=== PATIENT | female | born 1955 | race Two or more races ===

== ENCOUNTER → 2019-05-08 16:09 | Outpatient (CLI) | payer OTHER, SELFPAY ==
--- NOTE | ~2019-05-08 | MR_ITS ---
EXAMINATION: MR lumbar spine wo con DATE: 05/08/2019 17:18 INDICATION: Chronic low back pain. TECHNIQUE: Magnetic resonance imaging (MRI) of the lumbar spine was performed without intravenous con trast. Sequences included sagittal T2-weighted FSE, sagittal T2-weighted FS FSE, sagittal T1-weighted FSE, and axial T2-weighted FSE. COMPARISON: Lumbar spine MRI 03/19/2018 FINDINGS: There is 4 degrees levocurvature of lumbar spine. There is 7 mm anterolisthesis of L4 on L5 . Vertebral body heights are normal. There is moderately decreased disc height at L4-L5 and mildly de creased disc height at L5-S1. The distal spinal cord signal intensity is normal. The conus medullaris is at L1. The following disc levels are specifically discussed: L1-L2: The disc does not extend beyond the endplate margin. There is no facet joint osteoarthritis. T here is no neural foraminal stenosis. There is no central canal stenosis. L2-L3: The disc does not extend beyond the endplate margin. There is mild bilateral facet joint osteo arthritis. There is no neural foraminal stenosis. There is no central canal stenosis. L3-L4: The disc is mildly bulging. There is severe bilateral facet joint osteoarthritis. There is mil d bilateral neural foraminal stenosis. There is mild central canal stenosis. L4-L5: The disc is bulging and has an annular fissure. There is severe bilateral facet joint osteoart hritis. There is moderate bilateral neural foraminal stenosis. There is moderate central canal stenos is. L5-S1: There is a central extrusion. There is severe right and mild left facet joint osteoarthritis. There is mild bilateral neural foraminal stenosis. There is mild central canal stenosis. IMPRESSION: 1. Moderate lumbar spondylosis, worsened from 03/19/2018. Reviewed, dictated and finalized at location A. 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
== END ==
PROVIDERS: Visit Provider Emergency Medicine
DX: M47.896 Other spondylosis, lumbar region (principal)
CPT/HCPCS: 72148

== ENCOUNTER → 2019-07-10 16:10 | Outpatient (CLI) | payer OTHER, SELFPAY ==
--- NOTE | ~2019-07-10 | MM_ITS ---
EXAMINATION: MM screening [facility] BI w mika HISTORY: Screening mammogram TECHNIQUE: Craniocaudal and mediolateral oblique 3-D tomosynthesis images were obtained and synthetic 2-D images were generated. CAD analysis was submitted and interpreted. COMPARISON: 12/18/2017, 11/16/2016, 03/16/2015 BREAST PARENCHYMAL COMPOSITION: The breasts are heterogeneously dense, which may obscure small masses . FINDINGS: RIGHT BREAST: An asymmetry is present in the middle third of the outer breast 5 cm from the nipple on the craniocaudal view. LEFT BREAST: There is no evidence of suspicious mass, calcification, or architectural distortion to s uggest malignancy. There has been no significant interval change. IMPRESSION: 1. Right breast asymmetry on the craniocaudal view. 2. Additional mammographic views and possible breast ultrasound are recommended. BI-RADS Category 0: Incomplete: Needs additional imaging evaluation. Reviewed, dictated and finalized at location A. 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 Right breast asymmetry on the craniocaudal view. 2. Additional mammographic views and possible breast ultrasound are recommended . BI-RADS Category 0: Incomplete: Needs additional imaging evaluation.
== END ==
PROVIDERS: PCP Emergency Medicine; Visit Provider Obstetrics & Gynecology
DX: Z12.31 Encounter for screening mammogram for malignant neoplasm of breast (principal); R92.8 Other abnormal and inconclusive findings on diagnostic imaging of breast
CPT/HCPCS: 77063; 77067

== ENCOUNTER → 2019-07-15 08:23 | Outpatient (CLI) | payer OTHER, SELFPAY ==
--- NOTE | ~2019-07-15 | CT_ITS ---
EXAMINATION: CT lumbar spine wo con EXAM DATE: 07/15/2019 08:55 INDICATION: Low back pain with radiculopathy. Lumbar spondylosis. TECHNIQUE: Multi-sequential, multiplanar MR images of the lumbar spine were obtained without contrast . Sagittal T1, T2, T2 fat saturation images. Axial T2 weighted images. There is no prior study for comparison. FINDINGS: There is 7 mm anterolisthesis L4 on L5 with moderate loss of this disc height. There is 2 m m retrolisthesis L5 on S1. No spondylolysis. Vertebral body heights are maintained. Sacrum, sacroilia c joints are unremarkable. Paraspinal soft tissue is unremarkable. Mild sigmoid diverticulosis. Level by level evaluation: T12-L1: There is a mild diffuse disc bulge. Facet arthropathy: Minimal. Neural foraminal stenosis: No stenosis. Central canal stenosis: No stenosis. L1-L2: There is a mild diffuse disc bulge. Facet arthropathy: Minimal. Neural foraminal stenosis: No stenosis. Central canal stenosis: No stenosis. L2-L3: There is a mild diffuse disc bulge. Facet arthropathy: Mild. Neural foraminal stenosis: No stenosis. Central canal stenosis: Mild. L3-L4: There is a mild to moderate diffuse disc bulge. Facet arthropathy: Mild to moderate. Neural foraminal stenosis: Mild bilateral. Central canal stenosis: Mild. L4-L5: There is a moderate diffuse disc bulge. Facet arthropathy: Moderate to severe. Neural foraminal stenosis: Moderate bilateral, right greater than left. Central canal stenosis: Moderate to severe. L5-S1: There is a mild diffuse disc bulge. Superimposed central protrusion. Facet arthropathy: Moderate. Neural foraminal stenosis: Mild bilateral. Central canal stenosis: Mild to moderate. IMPRESSION: 1. L4-5 7 mm anterolisthesis with moderate to severe central canal stenosis. 2. Otherwise mild to moderate lumbar spondylosis as above. Reviewed, dictated and finalized at location B. 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
== END ==
DX: M47.896 Other spondylosis, lumbar region (principal)
CPT/HCPCS: 72131

== ENCOUNTER → 2019-07-25 07:58 | Outpatient (CLI) | payer OTHER, SELFPAY ==
--- NOTE | ~2019-07-25 | MM_ITS ---
EXAMINATION: MM diagnostic mammo unilat RT HISTORY: Right breast asymmetry on screening mammogram TECHNIQUE: Additional 3-D tomosynthesis images of the right breast were performed and synthetic 2-D i mages were generated. CAD analysis was submitted and interpreted. COMPARISON: 07/10/2019, 12/18/2017, 11/16/2016, 03/16/2015 FINDINGS: No persistent asymmetry is identified with additional views of the right breast. There is a return to baseline fibroglandular appearance. There has been no suspicious interval change. IMPRESSION: 1. No mammographic evidence of malignancy. 2. Recommend routine screening mammography in one year. BI-RADS Category 1: Negative Reviewed, dictated and finalized at location A. CTOR ON AIR
== END ==
PROVIDERS: Visit Provider Obstetrics & Gynecology
DX: R92.8 Other abnormal and inconclusive findings on diagnostic imaging of breast (principal)
CPT/HCPCS: 77065

== ENCOUNTER → 2021-03-23 13:18 | Outpatient (CLI) | payer OTHER, SELFPAY ==
--- NOTE | ~2021-03-23 | MM_ITS ---
EXAMINATION: MM screening [facility] BI w mika HISTORY: Screening mammogram TECHNIQUE: Craniocaudal and mediolateral oblique 3-D tomosynthesis images were obtained and synthetic 2-D images were generated. CAD analysis was submitted and interpreted. COMPARISON: 07/25/2019 diagnostic right mammogram 07/10/2019, 12/18/2017 bilateral digital screening mammogram examinations BREAST PARENCHYMAL COMPOSITION: The breasts are heterogeneously dense, which may obscure small masses . FINDINGS: There is no evidence of suspicious mass, calcification, or architectural distortion to sugg est malignancy in either breast. There has been no suspicious interval change. IMPRESSION: 1. No mammographic evidence of malignancy. 2. Recommend routine screening mammography in one year. BI-RADS Category 1: Negative Reviewed, dictated and finalized at location A.
== END ==
PROVIDERS: PCP Internal Medicine; Visit Provider Obstetrics & Gynecology
DX: Z12.31 Encounter for screening mammogram for malignant neoplasm of breast (principal)
CPT/HCPCS: 77063; 77067

== ENCOUNTER → 2021-03-29 13:40 | Outpatient (CLI) | payer OTHER, SELFPAY ==
--- NOTE | ~2021-03-29 | US_ITS ---
EXAMINATION: US retroperitoneal comp EXAM DATE: 03/29/2021 14:05 INDICATION: asymptomatic microscopic hematuria. TECHNIQUE: Multiple grayscale and Doppler images of the kidneys were obtained (by a technologist who performed the scan) and subsequently reviewed. There is no prior study for comparison. FINDINGS: Right kidney: There is normal contour and echogenicity. It measures 8.6 x 4.2 x 4.6 centimeters. Th ere are no focal renal lesions identified. There is no hydronephrosis. Left kidney: There is normal contour and echogenicity. It measures 9.1 x 4.1 x 4.7 centimeters. The re are no focal renal lesions identified. There is no hydronephrosis. Bladder unremarkable. IMPRESSION: 1. Sonographically unremarkable kidneys. Reviewed, dictated and finalized at location B.
== END ==
PROVIDERS: PCP Internal Medicine; Visit Provider Internal Medicine
DX: N28.9 Disorder of kidney and ureter, unspecified (principal); R31.21 Asymptomatic microscopic hematuria
CPT/HCPCS: 76770

== ENCOUNTER 2021-05-08 22:04 | Emergency (ER) | payer MEDICARE, OTHER, SELFPAY ==
--- NOTE | 2021-05-08 22:07 | ECG_ITS ---
Measurements Intervals [place] Rate: 71 P: 53 WI: 167 QRS: -17 QRSD: 88 T: 7 QT: 376 QTc: 409 Interpretive Statements SINUS RHYTHM INCOMPLETE RIGHT BUNDLE BRANCH BLOCK LOW QRS VOLTAGE IN PRECORDIAL LEADS BORDERLINE ST-T WAVE ABNORMALITY- ANTEROLATERAL LEADS BORDERLINE ECG Electronically Signed On 05-09-2021 7:04:05 AIR TRAFFIC CONTROL OPERATOR by Anirudh Moffett D.O.
[2021-05-08 22:09] VITALS: BP 146/59; PULSE 88; RESP 16; TEMP 36.1; O2SAT 100
--- NOTE | 2021-05-08 23:19 | PC.NURSE ---
PT STATES I CAN'T WAIT HERE ANY LONGER. I WANT TO GO HOME TO MY BED . ADVISED TO SPEAK WITH HER PHYSICIAN MONDAY MORNING REGARDING HER C/O. PT AMBULATORY FROM THE ED WITH A STEADY GAIT. NO TREMORS/SHAKING NOTED.
== END 2021-05-08 23:32 | disposition left against medical advice (07) ==
PROVIDERS: Emergency Provider Emergency Medicine; PCP Internal Medicine
DX: R42 Dizziness and giddiness (principal)
CPT/HCPCS: 93005; 99199

== ENCOUNTER 2021-08-04 02:54 | Emergency (ER) | payer MEDICARE, OTHER, SELFPAY ==
[2021-08-04 03:07] VITALS: BP 148/87; PULSE 60; RESP 16; TEMP 36.8; O2SAT 99
[2021-08-04 04:03] VITALS: BP 126/78; PULSE 53; RESP 16; O2SAT 100
[2021-08-04] MEDS: ACETAMINOPHEN 500 MG TABLET 1000 MG PO (05:22)
[2021-08-04] MEDS: diphenhydrAMINE HCl CAP 25 MG CAPSULE PO (05:22)
--- NOTE | 2021-08-04 05:40 | ED.RECABL ---
HPI - Recheck/Abnormal Lab/Rx General Chief Complaint: Recheck/Abnormal Lab/Rx Stated Complaint: High Blood Pressures Time Seen by Provider: 08/04/21 03:56 Source: patient History of Present Illness HPI narrative: Patient presents with multiple complaints her primary complaint is her headache at this time. Such a history of migraines at home migraine medications however did not alleviate her symptoms so she came to the ER for evaluation. Patient is also concerned about her blood pressure notes spikes up periodically up to the 190s concerned that she might have a stroke and was not sure what to do about it. She denies any focal numbness or weakness denies any changes in vision she denies any chest pain, shortness of breath, abdominal pain, nausea, vomiting. Related Data Home Medications Medication Instructions Recorded Confirmed atenolol 100 mg tablet 100 mg PO DAILY 04/24/19 multivitamin 1 tablet PO DAILY 04/24/19 sulindac 150 mg tablet 150 mg PO BID 04/24/19 Allergies Allergy/AdvReac Type Severity Reaction Status Date / Time Penicillins Allergy Mild Unknown Verified 04/24/19 10:03 yellow dye Allergy Mild Rash Verified 04/24/19 10:03 Review of Systems Review of Systems: CONSTITUTIONAL: Denies fever, chills, or sweats. EYES: Denies visual changes, redness, or discharge. ENT: Denies rhinorrhea, congestion, sore throat, or otalgia. CARDIOVASCULAR: Denies chest pain, palpitations, or edema. RESPIRATORY: Denies cough or dyspnea. GASTROINTESTINAL: Denies abdominal pain, nausea, vomiting, or diarrhea. GENITOURINARY: Denies dysuria or hematuria. SKIN: Denies rash or itching. MUSCULOSKELETAL: Denies back pain, joint pain, or myalgia. NEUROLOGIC: Denies numbness, dizziness, or weakness. PSYCHIATRIC: Denies anxiety or depression. All systems reviewed & are unremarkable except as noted in HPI and below PMFSH Past Medical History Medical History (Updated 08/04/21 @ 05:57 by Lucien Salazar MD) HSV (herpes simplex virus) infection Hypertension Surgical History Surgical History H/O foot surgery History of endometrial ablation Family History Family History Mother Hypertension Patient's mother is Other Family history of arthritis Social History Social History Smoking status: Never smoker Second hand tobacco smoke exposure: No Alcohol intake: never Exam Narrative: GENERAL: Well-appearing, well-nourished, and in no acute distress. HEAD: Normocephalic, atraumatic. EYES: PERRLA and EOMI. ENT: Nares clear, no rhinorrhea or epistaxis. Mucous membranes moist. NECK: Supple. No masses. No JVD CHEST: Clear to auscultation. No respiratory distress. No wheezes rales or rhonchi HEART: Regular rate and rhythm. No murmur heard. Normal peripheral pulses. ABDOMEN: Soft, nontender, nondistended, normal active bowel sounds. EXTREMITIES: Normal range of motion. No edema. SKIN: Warm, dry, no rash. NEURO: Cranial nerves II through XII are intact, patient is 5 out of 5 strength in all extremities, sensation intact to light touch in all extremities alert and oriented x3. PSYCH: Normal mood and affect. Course Reevaluation(s) Reevaluation #1: Patient continues to have a headache blood pressure has improved without intervention. Patient initially declined IV therapies oral therapies were ordered patient did not notice improvement in her symptoms and declined further oral therapies would like to continue her treatment at home Date: 08/04/21 Time: 05:56 Vital Signs Vital signs: Vital Signs Temperature 36.8 C 08/04/21 03:07 Pulse Rate 60 08/04/21 03:07 Respiratory Rate 16 08/04/21 03:07 Blood Pressure 148/87 H 08/04/21 03:07 Pulse Oximetry 99 08/04/21 03:07 Temperature 36.8 C 08/04/21 06:36 Pulse Rate 69
[2021-08-04] MEDS: PROCHLORPERAZINE MALEATE 5 MG TABLET 10 MG PO (06:17)
[2021-08-04 06:27] VITALS: BP 122/70; PULSE 69; RESP 18; TEMP 36.8; O2SAT 98
[2021-08-04 06:29] VITALS: BP 122/70; PULSE 69; RESP 18; TEMP 36.8; O2SAT 98
[2021-08-04 06:36] VITALS: BP 122/70; PULSE 69; RESP 18; TEMP 36.8
== END 2021-08-04 06:41 | disposition home or self-care (01) ==
PROVIDERS: Emergency Provider Emergency Medicine; PCP Internal Medicine
DX: R51.9 Headache, unspecified (principal); I10 Essential (primary) hypertension
CPT/HCPCS: 99283; A9270

== ENCOUNTER → 2021-10-16 09:13 | Outpatient (CLI) | payer MEDICARE, OTHER, SELFPAY ==
--- NOTE | ~2021-10-16 | US_ITS ---
EXAMINATION: US right upper quadrant DATE: 10/16/2021 09:29 INDICATION: Functional diarrhea. TECHNIQUE: Multiple grayscale and Doppler ultrasound images of the right upper quadrant were obtained . COMPARISON: CT abdomen and pelvis 01/05/2019. FINDINGS: Visualized portions of the pancreas are normal. The liver is normal with normal echogenicit y and echotexture. No surface nodularity. Normal hepatopetal flow in the main portal vein. The gallbl adder is normal with no abnormal wall thickening, pericholecystic fluid or stones. The normal common bile duct measures 0.3 cm. There was no sonographic Pereira sign. The visualized portions of the aorta and inferior vena cava are normal. The right kidney measures 7.5 cm. IMPRESSION: 1. Normal right upper quadrant sonogram findings. Reviewed, dictated and finalized at location K.
== END ==
PROVIDERS: PCP Internal Medicine; Visit Provider Internal Medicine
DX: K59.1 Functional diarrhea (principal)
CPT/HCPCS: 76705

== ENCOUNTER → 2021-12-16 14:44 | Outpatient (CLI) | payer MEDICARE, OTHER, SELFPAY ==
--- NOTE | ~2021-12-16 | US_ITS ---
US thyroid INDICATION: Thyroid nodules TECHNIQUE: Real-time sonographic images of the thyroid gland were obtained. COMPARISON: Ultrasound dated 12/02/2027 FINDINGS: The right thyroid lobe measures 3.8 x 1.1 x 1.1 cm. The left thyroid lobe measures 4.5 x 1 .2 x 1.4 cm. There is normal echotexture and echogenicity throughout the thyroid gland. In the left l obe there is a 3 mm cyst. Also in the left lobe there is a 6 mm cyst with internal septation. No susp icious solid masses. Normal vascular flow is present. IMPRESSION: 1. Stable benign-appearing cysts of the left thyroid lobe. No suspicious masses which meet sonograph ic criteria for biopsy. Reviewed, dictated and finalized at location A. IMPRESSION: 1. Stable benign-appearing cysts of the left thyroid lobe. No suspicious dee s which meet sonographic criteria for biopsy.
== END ==
PROVIDERS: PCP Internal Medicine; Visit Provider Internal Medicine
DX: E04.1 Nontoxic single thyroid nodule (principal)
CPT/HCPCS: 76536

== ENCOUNTER → 2022-09-12 12:01 | Outpatient (CLI) | payer MEDICARE, OTHER, SELFPAY ==
--- NOTE | ~2022-09-12 | MM_ITS ---
EXAMINATION: MM screening [facility] BI w mika HISTORY: Screening mammogram TECHNIQUE: Craniocaudal and mediolateral oblique 3-D tomosynthesis images were obtained and synthetic 2-D images were generated. CAD analysis was submitted and interpreted. COMPARISON: 03/23/2021 07/25/2019 diagnostic right mammogram 07/10/2019, 12/18/2017 bilateral screening mammogram examinations BREAST PARENCHYMAL COMPOSITION: The breasts are heterogeneously dense, which may obscure small masses . FINDINGS: There is no evidence of suspicious mass, calcification, or architectural distortion to sugg est malignancy in either breast. There has been no suspicious interval change. IMPRESSION: 1. No mammographic evidence of malignancy. 2. Recommend routine screening mammography in one year. BI-RADS Category 1: Negative Reviewed, dictated and finalized at location A.
--- NOTE | ~2022-09-12 | DEXA_ITS ---
Bone Density Report Name: WILLIE SALOMON Age: 67 Sex: Female Ethnicity: White Date of : 1955 Indication: osteopenia; height loss; postmenopausal Referring Provider: LIVIER CONTEH Study: Bone densitometry was performed. Exam Date: September 12, 2022 Accession number: [id number] Bone Density: Region BMD T-score Z-score Classification AP Spine (L1-L4) 0.989 -0.5 1.3 Normal Femoral Neck (Left) 0.684 -1.5 0.1 Osteopenia Total Hip (Left) 0.791 -1.2 0.1 Osteopenia Femoral Neck (Right) 0.746 -0.9 0.6 Normal Total Hip (Right) 0.827 -0.9 0.3 Normal Total Hip Mean 0.809 -1.1 0.2 Osteopenia World Health Organization criteria for BMD impression classify patients as: Normal (T-score at or above -1.0), Osteopenia (T-score between -1.0 and -2.5), or Osteoporosis (T-score at or below -2.5). 10-year Fracture Risk(1): Major Osteoporotic Fracture 8.8% Hip Fracture 1.0% Reported Risk Factors: [place] (), Neck BMD=0.684, BMI=23.1 (1) FRAX(R) Version 3.08. Fracture probability calculated for an untreated patient. Fracture probability may be lower if the patient has received treatment. Previous Exams: Region Exam Age BMD T-score BMD Change BMD Change Date g/cm2 vs Baseline vs Previous AP Spine(L1-L4) 09/12/2022 67 0.989 -0.5 -0.115* -0.004 05/16/2019 63 0.992 -0.5 -0.111* -0.111* 09/30/2011 56 1.103 0.5 Total Hip(Left) 09/12/2022 67 0.791 -1.2 -0.074* -0.018 05/16/2019 63 0.809 -1.1 -0.056* -0.056* 09/30/2011 56 0.865 -0.6 Total Hip(Right) 09/12/2022 67 0.827 -0.9 -0.070* -0.023 05/16/2019 63 0.850 -0.8 -0.046* -0.046* 09/30/2011 56 0.896 -0.4 *Denotes significance at 95% confidence level, LSC for AP Spine = 0.022 g/cm2, LSC for Total Hip = 0.027 g/cm2 Clinical Information Provided by Patient: Has used the following medications: Vitamin D Patient maximum height was 62 Menopause Age: 47 No regular weight bearing exercise Does not regularly consume dairy products Drinks caffeinated beverages Onset of menses at age 13 Number of children 2 Impression: The patient has low bone mass, based on the Left Femoral Neck T-score. The patient has an estimated ten-year risk of hip fracture of 1% and an estimated ten-year risk of major fracture of 8.8%, based on the WHO FRAX algorithm. No significant bone loss was o
== END ==
PROVIDERS: PCP Internal Medicine; Visit Provider Obstetrics & Gynecology
DX: Z12.31 Encounter for screening mammogram for malignant neoplasm of breast (principal); Z78.0 Asymptomatic menopausal state; M85.852 Other specified disorders of bone density and structure, left thigh; M85.851 Other specified disorders of bone density and structure, right thigh
CPT/HCPCS: 77063; 77067; 77080

== ENCOUNTER 2023-04-12 11:15 | Outpatient (RCR) | payer MEDICARE, OTHER, SELFPAY ==
--- NOTE | 2023-03-01 15:37 | OPREHPOC ---
Outpatient Therapy Plan of Care This is a Multidisciplinary Plan of Care that may contain components documented by all disciplines (PT, OT, and ST.) PT Problem 1 PT Problem #1 Knowledge Deficit PT Goal 1 Goal 1* indep with HEP 2* use correct body mechanics and posture with lifting and mobility PT Problem 2 PT Problem #2 Pain PT Goal 1 Goal 1* pt report pain rating of 2/10 at worst 2* Oswestry self assessment functional score of 34 % limitation in activity 3* pt report standing/walking tolerance of 2 hours before have to sit/rest PT Problem 3 PT Problem #3 Impaired Strength PT Goal 1 Goal 1* pt transfer sit/stand without use of UE's 2* pt able to get on/off floor without laboring 3* pt perform 20 reps of mat strengthening exercises 4* pt perform 15 reps of sitting ball exercises with good trunk stability 5* pt perform bilateral UE 15# box lift floor/ waist height, 3x
--- NOTE | 2023-03-01 15:37 | PTOPEVAL1 ---
Assessment and note entered by Jessica Marroquin, PT Evaluation Information Assessment Status Evaluation Diagnosis s/p lumbar laminectomy with fusion, sacroilitis, piriformis syndrome Onset 01-03-23 Subjective Information since surgery, resting, using back brace; after surgery, went to in pt rehab before going home; have 20# lifting restrictions; since surgery, improved- no longer have leg numbness; was on statin med which made legs more weak--taken off that med. 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 with taking care of her home, dogs, who is disabled; ACTIVITY: limited- cannot squat or do home tasks; Reported Pain Level Pain Score Self Report Additional Pain Score Comments pain range 3-4/10; over low back, no radicular pain increase pain: supine to sit and sit to stand; trying to stand upright, have to use arms to stand up decrease pain- taking tylenol;ice lie down; Oswestry self assessment functional score of 44% limitation in activity level; reports standing/walking tolerance 1 hour; take muscle relaxer for sleeping, can sleep through the night; Assessment PT Clinical Summary Norma has the diagnosis of s/p lumbar laminectomy and fusion 8 weeks ago. She is using her back brace when out of home and has lifting restriction of 20#. 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 And has not returned to work since her surgery. At home, has not been doing any exercises. Self assessment Oswestry limitation of 44%. Pain is increased with positional changes of supine/sit/ stand. With the evaluation: she has good flexibility of her LE's; weakness over trunk and hips, 2 minute walking distance of 470' with good gait pattern. The scars are well healed with tightness over lumbar area with palpation. Increase time and labored with supine>sit>
--- NOTE | 2023-04-03 13:36 | OPREHPOC ---
Outpatient Therapy Plan of Care This is a Multidisciplinary Plan of Care that may contain components documented by all disciplines (PT, OT, and ST.) PT Problem 1 PT Problem #1 Knowledge Deficit PT Goal 1 Goal 1* indep with HEP 2* use correct body mechanics and posture with lifting and mobility Progress Met Comment 04-03-23 progress met goals PT Problem 2 PT Problem #2 Pain PT Goal 1 Goal 1* pt report pain rating of 2/10 at worst 2* Oswestry self assessment functional score of 34 % limitation in activity 3* pt report standing/walking tolerance of 2 hours before have to sit/rest Progress Partially Met Comment 04-03-23 progress met goals 2,3 NEW GOALS: 1* pain rating 3/10 at worst 2* pt report working 6 hours PT Problem 3 PT Problem #3 Impaired Strength PT Goal 1 Goal 1* pt transfer sit/stand without use of UE's 2* pt able to get on/off floor without laboring 3* pt perform 20 reps of mat strengthening exercises 4* pt perform 15 reps of sitting ball exercises with good trunk stability 5* pt perform bilateral UE 15# box lift floor/ waist height, 3x Progress Partially Met Comment 04-03-23 progress met goals 1,2,3,4 NEW GOALS: 1* perform bilateral UE lift 15# box floor/waist 2* bilateral leg press 90# x 15 reps
--- NOTE | 2023-04-03 13:36 | PTOPPROG ---
Assessment and note entered by Jessica Marroquin, PT Evaluation Information Assessment Status Progress Diagnosis s/p lumbar laminectomy with fusion, sacroilitis, piriformis syndrome Onset 01-03-23 Subjective Information is better, working 4-5 hours at time, is doing all of the normal things at home now; can be up and moving for about 3 hours then sit down; can sleep through the night and turn over in bed now without hurting; PAIN: range of 1-4/10 in the past week; dull pain across low back increase pain with pulling weeds in flower garden, working 5 hours decrease pain: lie down, take muscle relaxer for sleeping, tylenol Assessment PT Clinical Summary Norma has received 4 PT sessions. Compared to the initial evaluation: pain rating from 3-4/10 to 1-4/10, without radicular pain; reported standing/activity, sleeping and work tolerance have improved; Self assessment Oswestry from 44 to 26% limitation in activity level; increased strength of trunk and hips; with bilateral UE box lift from floor/waist 5# then pain increased; education for home exercises and back posture/positioning. Plan of Care Interventions Electrical Stimulation,Hot Pack/Cold Pack,Manual Therapy,Neuro Re-education,Patient Education,Therapeutic Activities,Therapeutic Exercise,Ultrasound,Other Other Interventions IAS PT Services Indicated Yes Treatment Frequency and 1x/wk for 4 weeks Duration These treatments will address the objective and functional deficits as defined above. The patient will be advanced safely and appropriately in order for the patient to progress towards his/her prior level of function. Additional exercises will be introduced and as well as a comprehensive home exercise program upon discharge, if needed, ?to ensure carryover of functional gains achieved in the clinic. This treatment plan has been reviewed and agreement upon by the patient.
--- NOTE | 2023-04-12 12:01 | PTOPDC ---
Assessment and note entered by Jessica Marroquin, PT Evaluation Information Assessment Status Discharge Diagnosis s/p lumbar laminectomy with fusion, sacroilitis, piriformis syndrome Onset 01-03-23 Subjective Information is doing better, working 7-8 hours at work, 5-6 days/week, doing all home and yard things, walking her dog; feels ready to be done with therapy. Is doing all the exercises; Reported Pain Level Pain Score Self Report Pain Score Self Report Additional Pain Score Comments pain range of 1-3/10, stiff and sore in low back and sometimes goes up into thoracic area Assessment PT Clinical Summary Norma has received 5 PT sessions. She has improved with decreased pain rating, increase activity tolerance with home and work tasks, increase strength of trunk and legs and education completed for HEP and body mechanics. The goals were achieved, except lifting with both arms 15# floor to waist height. Discharge PT services. Plan of Care PT Services Indicated No
== END 2023-04-12 14:53 | disposition home or self-care (01) ==
LOC: ANHPT 11:15
PROVIDERS: PCP Internal Medicine
DX: M46.1 Sacroiliitis, not elsewhere classified (principal); G57.01 Lesion of sciatic nerve, right lower limb; Z98.1 Arthrodesis status; Z98.890 Other specified postprocedural states
CPT/HCPCS: 97110; 97140; 97161; 97530

== ENCOUNTER 2023-06-09 21:37 | Emergency (ER) | payer MEDICARE, OTHER, SELFPAY ==
[2023-06-09 21:38] VITALS: BP 156/85; PULSE 65; RESP 18; TEMP 36.8; O2SAT 99
== END 2023-06-09 23:33 | disposition left against medical advice (07) ==
LOC: ANHED 22:48
PROVIDERS: PCP Internal Medicine
DX: I10 Essential (primary) hypertension (principal)
CPT/HCPCS: 99199

== ENCOUNTER 2023-07-20 09:54 | Emergency (ER) | payer MEDICARE, OTHER, SELFPAY ==
[2023-07-20 10:02] VITALS: BP 128/75; PULSE 72; RESP 20; TEMP 36.4; O2SAT 100
--- NOTE | 2023-07-20 12:33 | ED.WOUNDLAC ---
HPI - Wound/Laceration General Chief Complaint: Wound/Laceration Stated Complaint: Laceration Time Seen by Provider: 07/20/23 12:29 Source: patient Mode of arrival: ambulatory Limitations: no limitations History of Present Illness HPI narrative: Norma is a 68-year-old male patient presenting to the clinic today with complaints of a skin avulsion/laceration to the right thumb. She reports she was cutting up some cabbage this morning using a mandolin and cut the lateral aspect of the right thumb involving the nail. Tetanus is up-to-date per patient-received tetanus 2 years ago. Related Data Home Medications Medication Instructions Recorded Confirmed cetirizine 10 mg capsule (Zyrtec) 10 mg PO DAILY PRN Headache 06/30/22 01/06/23 cyclobenzaprine 10 mg tablet 10 mg PO TID PRN Muscle Spasms 06/30/22 01/06/23 pravastatin 10 mg tablet 40 mg PO HS 06/30/22 01/06/23 zolmitriptan 2.5 mg tablet (Zomig) 5 mg PO ONCE PRN MATHEW 06/30/22 01/06/23 carvedilol 3.125 mg tablet 3.125 mg PO BID 01/06/23 01/06/23 cyanocobalamin (vitamin B-12) 2,000 mcg PO DAILY 01/06/23 01/06/23 1,000 mcg tablet famotidine 20 mg tablet 20 mg PO BID 01/06/23 01/06/23 fluoxetine 10 mg capsule 10 mg PO DAILY 01/06/23 01/06/23 polyethylene glycol 3350 17 17 g PO BID PRN Constipation 01/06/23 01/06/23 gram/dose oral powder (Miralax) senna-docusate sodium tablet 1 tablet PO BID PRN Constipation 01/06/23 01/06/23 triamcinolone acetonide 0.1 % 1 applic TID 01/06/23 01/06/23 dental paste triamcinolone acetonide 0.1 % 1 applic topical BID 01/06/23 01/06/23 topical cream Allergies Allergy/AdvReac Type Severity Reaction Status Date / Time Penicillins Allergy Mild Unknown Verified 01/06/23 12:52 yellow dye Allergy Mild Rash Verified 01/06/23 12:52 Review of Systems Review of Systems: Pertinent positives per HPI. Patient denies any fever, chills, rash, headache, visual changes, dizziness, cough, runny nose, sore throat, shortness of breath, chest pain, palpitations, nausea, vomiting, diarrhea, constipation, abdominal pain, or any urinary issues. [facility] Past Medical History Medical History Arthritis HSV (herpes simplex virus) infection Hypertension Surgical History Surgical History H/O foot surgery History of endometrial ablation Family History Family History Mother Hypertension Patient's mother is Other Family history of arthritis Social History Social History Smoking status: Never smoker Second hand tobacco smoke exposure: No Alcohol intake: never Substance use: never Substance use type: does not use Lack of Transportation: No Lack of Food: Never True Current Housing: I Have Housing Concerned About Future Housing: No Difficulty Paying Gas/Electric Bills: No Difficulty Paying for Meds: No Currently Unemployed: No Education: Master's Degree or Higher Difficulty w/ Childcare or Family Care: No Spiritual care concerns: No Comments At the time of my signature, I reviewed and agree with the nursing past medical, surgical, social, and family history. There is no relevant family history pertinent to the patient complaint. Exam Narrative: General: Well-developed, well nourished, in no apparent distress Head: Normocephalic, atraumatic. Cardio: Regular rate and rhythm, s1 and s2 normal, no murmur appreciated. Resp: Clear to auscultation bilaterally, no rhonchi, rales, wheezing or rubs. Integumentary: [place], warm, and dry, approximately 1 by 1.5 skin avulsion involving right corner of the lateral thumbnail and lateral distal thumb, bleeding controlled Course Course Emergency Course: Portions of this record may have been created with voice recognition soft
== END 2023-07-20 14:00 | disposition home or self-care (01) ==
PROVIDERS: Emergency Provider Nurse Practitioner Family; PCP Internal Medicine
DX: S61.011A Laceration without foreign body of right thumb without damage to nail, initial encounter (principal); I10 Essential (primary) hypertension; M19.90 Unspecified osteoarthritis, unspecified site; W27.4XXA Contact with kitchen utensil, initial encounter; Y93.G1 Activity, food preparation and clean up
CPT/HCPCS: 99282

== ENCOUNTER 2024-09-10 12:09 | Outpatient (CLI) | payer MEDICARE, OTHER, SELFPAY ==
--- NOTE | ~2024-09-10 | US_ITS ---
Thyroid ultrasound. Clinical History: Thyroid nodule COMPARISON: 12/16/2021 Findings: Real-time sonography of the thyroid gland was performed. The right lobe measures 3.4 x 1.1 x 1.0 cm. The left lobe measures 4.2 x 1.1 x 1.1 cm. The isthmus is 3 mm in AP diameter. There is a 7 mm cystic nodule at the left lower pole, benign. There is an additional 3 mm hypoechoic, possibly cystic nodules with the left lower pole. Impression: Subcentimeter cystic nodules at the left lower pole thyroid gland are similar to prior exam.. Reviewed, dictated and finalized at location . Impression: Subcentimeter cystic nodules at the left lower pole thyroid gland are similar t o prior exam..
== END 2024-09-10 12:10 | disposition home or self-care (01) ==
LOC: MICIMG 12:10
PROVIDERS: PCP Internal Medicine; Visit Provider Internal Medicine
DX: E04.1 Nontoxic single thyroid nodule (principal)
CPT/HCPCS: 76536

== ENCOUNTER 2024-09-15 09:28 | Outpatient (CLI) | payer MEDICARE, OTHER, SELFPAY ==
--- NOTE | ~2024-09-15 | MR_ITS ---
MRI of the brain Clinical History: Vestibular schwannoma Technique: Axial and sagittal T1-weighted images were acquired. These were followed by axial T2-weigh mela, diffusion weighted, gradient, and FLAIR images. Thin cut axial and coronal T1-weighted and T2-we ighted images were performed through the internal auditory canals. Following intravenous administrati on of 11 cc ProHance gadolinium, T1-weighted fat-sat imaging was performed through the brain in the a xial and coronal planes. Thin cut T1-weighted fat-sat postcontrast imaging was performed through the internal auditory canals in the axial and coronal planes. Findings: There is no acute infarct or intracranial hemorrhage. There are minimal chronic white matte r changes in the periventricular white matter. Ventricles and subarachnoid spaces are minimally dilated. Orbits are unremarkable. Paranasal sinuses and mastoid air cells are clear. Distal right vertebral artery flow-void not well seen. Remaining pedro pablo or intracranial flow voids appear intact. Sagittal midline structures are intact. There is a 1.0 x 0.4 cm enhancing mass in the right internal auditory canal, compatible with acoustic neuroma (series 15 image 33, series 14 image 9). No other abnormal mass lesion identified. IMPRESSION: 1.0 x 0.4 cm right-sided acoustic neuroma. Reviewed, dictated and finalized at location .
== END 2024-09-15 09:29 | disposition home or self-care (01) ==
PROVIDERS: PCP Internal Medicine
DX: D33.3 Benign neoplasm of cranial nerves (principal)
CPT/HCPCS: 70553; A9579

== ENCOUNTER 2024-10-29 09:45 | Outpatient (RCR) | payer MEDICARE, OTHER, SELFPAY ==
--- NOTE | 2024-09-16 09:07 | OTOPEVAL1 ---
Assessment and note entered by Barrington Broderick, OTKarrie/Alessia, JULIETTET OT Evaluation Information 09/16/24 Assessment Status Evaluation Diagnosis (R) thumb CMC joint LRTI ICD-10 Condition Codes (OT) Joint stiffness of right hand M25.641,Pain in right hand M79.641 Subjective Information Patient underwent right thumb CMC LRTI procedure on 08/16/24. She is right handed. She reports residual pain, stiffness, and weakness that limits her ability to complete ADLs and work tasks. 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 She reports she is unable to open a jar, carry a bag, or use this hand to wash her hair. Reported Pain Level Pain Score 3: Self Report Assessment OT Clinical Summary Patient referred to OT s/p (R) thumb CMC LRTI procedure. She is 4 weeks post-op today. She presents with residual stiffness, pain, and weakness in the right wrist and thumb, which restricts return to hand use for ADLs. She presents in an off the shelf thumb spica, which supports and immobilizes the wrist and thumb CMC well. Educated on active/passive ROM HEP, activity restrictions, splint use, and therapy plan of care. Continued skilled OT indicated for HEP progression, use of modalities, manual therapy, and therapeutic activities and exercises to facilitate improved functional ROM, strength, and use of her (R) UE. Plan of Care Interventions Therapeutic Exercise,Manual Therapy,Therapeutic Activities,Hot Pack/Cold Pack,Check Out for Orthotic/Prosthetic,Ultrasound,Paraffin OT Services Indicated Yes Treatment Frequency and 1x/week for 5 visits Duration These treatments will address the objective and functional deficits as defined above. The patient will be advanced safely and appropriately in order for the patient to progress towards his/her prior level of function. Additional exercises will be introduced and as well as a comprehensive home exercise program upon discharge, if needed, ?to ensure carryover of functional gains achieved in the clinic. This treatment plan has been reviewed and agreement upon by the patient.
--- NOTE | 2024-09-16 09:07 | OPREHPOC ---
Outpatient Therapy Plan of Care This is a Multidisciplinary Plan of Care that may contain components documented by all disciplines (PT, OT, and ST.) OT Problem 1 OT Problem #1 Knowledge Deficit OT Goal 1 Goal / Goal Update Patient to be independent with all materials. Target Visit 5 OT Problem 2 OT Problem #2 Impaired Range of Motion OT Goal 1 Goal / Goal Update Increase active ROM of the (R) thumb to increase flexibility for functional thumb use: - be able to complete serial opposition - be able to touch the thumb to the base of digit V Target Visit 5 OT Problem 3 OT Problem #3 Impaired Strength OT Goal 1 Goal / Goal Update Patient to be able to progress functional strengthening to improve strength for ADLs as measured by: - pt progressing to 2 lb. strengthening for wrist - pt progressing to yellow putty for proposal rep and pinch strengthening Target Visit 5
--- NOTE | 2024-10-07 09:39 | PCOTNOTE ---
Patient did not show up for scheduled appointment this date. Called patient who reports she forgot about her appointment. Reminded her of her next appointment.
--- NOTE | 2024-10-29 10:23 | OTOPDC ---
Assessment and note entered by Barrington Broderick, OTR/L, CHT OT D/C Report 10/04/24 Assessment Status Discharge Diagnosis (R) thumb CMC joint LRTI ICD-10 Condition Codes (OT) Joint stiffness of right hand M25.641,Pain in right hand M79.641 Subjective Information -Patient underwent right thumb CMC LRTI procedure on 08/16/24. She is right handed. -Patient reports her flexibility is improving, but she continues to notice weakness. She reports she has progressed to being able to hold a glass of water with a cylindrical grasp, but that she needs to be careful as to not drop it. She has progressed to being able to open a jar, carry her purse, and wash her hair. -She reports she is bothered by the tightness she feels in her palm (1st web space tightness). She is working on self massage here. Measurements from the start of care: -Wrist flexion improved from 50 to 65 deg. -Wrist extension remained WFL at 60 deg. -Wrist RD improved from 0 to 15 deg. -Wrist UD remained WFL at 30 deg. -Thumb MCP improved from 30 to 40 deg. -Thumb IP improved from 30 to 60 deg. -Thumb CMC radial abduction improved from 45 to 50 deg. -Thumb CMC palmar abduction improved from 45 to 50 deg. -Opposition improved from being 1 cm away from touching the tip of digit V to being able to touch the tip and slide the thumb to P2. Orchard Sprayer/Pinch strength measurements today: - (R) egg tester 36 lbs. - (L) egg tester 57 lbs. - (R) lateral pinch 2 lbs. - (L) lateral pinch 9 lbs. - (R) palmar pinch 2 lbs. - (L) palmar pinch 9 lbs. Reported Pain Level Pain Score 2: Self Report Additional Pain Score Comments She reports more sensitivity than pain . This has improved over time, but she continues to notice sensitivity if the surgical site is touched or bumped. She is happy with the appearance of this area, however. Assessment OT Clinical Summary Patient referred to OT s/p (R) thumb CMC LRTI procedure. She is 10 weeks post-op today. Strengthening was initiated at 8 weeks post op and she has done very well with this. She continues to have residual stiffness and weakness, however all areas are making steady progress. She is using her hand for more ADL tasks and has returned to work. She is wearing a MetaGrip CMC support on her thumb. Reviewed her HEP today and she is currently independent with all materials. D/C today with HEP. OT Services Indicated No
--- NOTE | 2024-10-29 10:23 | OPREHPOC ---
Outpatient Therapy Plan of Care This is a Multidisciplinary Plan of Care that may contain components documented by all disciplines (PT, OT, and ST.) OT Problem 1 OT Problem #1 Knowledge Deficit OT Goal 1 Goal / Goal Update Patient to be independent with all materials. ---OT D/C 10/29/24--- Met Target Visit 5 OT Problem 2 OT Problem #2 Impaired Range of Motion OT Goal 1 Goal / Goal Update Increase active ROM of the (R) thumb to increase flexibility for functional thumb use: - be able to complete serial opposition - be able to touch the thumb to the base of digit V ---OT D/C 10/29/24--- - Met - Not met, reviewed HEP to continue to work on this Target Visit 5 OT Problem 3 OT Problem #3 Impaired Strength OT Goal 1 Goal / Goal Update Patient to be able to progress functional strengthening to improve strength for ADLs as measured by: - pt progressing to 2 lb. 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
== END 2024-10-29 11:44 | disposition home or self-care (01) ==
LOC: ANHOT 09:45
PROVIDERS: PCP Internal Medicine
DX: M79.641 Pain in right hand (principal)
CPT/HCPCS: 97018; 97110; 97140; 97165

== ENCOUNTER 2024-11-19 12:30 | Outpatient (CLI) | payer MEDICARE, OTHER, SELFPAY ==
--- NOTE | ~2024-11-19 | DEXA_ITS ---
Bone Density Report Name: WILLIE SALOMON Age: 69 Sex: Female Ethnicity: White Date of : 1955 Indication: osteopenia; height loss; Referring Provider: LIVIER CONTEH Study: Bone densitometry was performed. Exam Date: November 19, 2024 Accession number: [id number] Bone Density: Region BMD T-score Z-score Classification AP Spine(L1, L2, L3) 0.999 -0.2 1.8 Normal Femoral Neck (Left) 0.648 -1.8 -0.1 Osteopenia Total Hip (Left) 0.760 -1.5 -0.1 Osteopenia Femoral Neck (Right) 0.713 -1.2 0.5 Osteopenia Total Hip (Right) 0.798 -1.2 0.2 Osteopenia Total Hip Mean 0.779 -1.4 0.1 Osteopenia World Health Organization criteria for BMD impression classify patients as: Normal (T-score at or above -1.0), Osteopenia (T-score between -1.0 and -2.5), or Osteoporosis (T-score at or below -2.5). 10-year Fracture Risk(1): Major Osteoporotic Fracture 11% Hip Fracture 1.7% Reported Risk Factors: [place] (), Neck BMD=0.648, BMI=24.0 (1) FRAX(R) Version 3.08. Fracture probability calculated for an untreated patient. Fracture probability may be lower if the patient has received treatment. Previous Exams: -- Region Exam Age BMD T-score BMD Change BMD Change Date g/cm2 vs Baseline vs Previous -- AP Spine (L1-L3) 11/19/2024 69 0.999 -0.2 -7.8%* 6.3%* 09/12/2022 67 0.940 -0.7 -13.3%* -2.7%* 05/16/2019 63 0.965 -0.5 -10.9%* -10.9%* 09/30/2011 56 1.084 0.6 Total Hip(Left) 11/19/2024 69 0.760 -1.5 -12.1%* -3.9%* 09/12/2022 67 0.791 -1.2 -8.5%* -2.2% 05/16/2019 63 0.809 -1.1 -6.5%* -6.5%* 09/30/2011 56 0.865 -0.6 Total Hip(Right) 11/19/2024 69 0.798 -1.2 -11.0%* -3.5%* 09/12/2022 67 0.827 -0.9 -7.8%* -2.7% 05/16/2019 63 0.850 -0.8 -5.2%* -5.2%* 09/30/2011 56 0.896 -0.4 -- *Denotes significance at 95% confidence level, LSC for AP Spine = 0.022 g/cm2, LSC for Total Hip = 0.027 g/cm2 Rate of change results reflect vertebral levels common to all scans Clinical Information Provided by Patient: Has used the following medications: Vitamin D, Calcium Patient maximum height was 62 Menopause Age: 47 No regular weight bearing exercise Does not regularly consume dairy products Drinks caffeinated beverages Onset of menses at age 13 Number of children 2 Impression: The patient has low bone mass, based on the Left Femoral Neck T-score. The patient has an estimated ten-year risk of hip fracture of 1.7% and an estimated ten-year risk of major fracture of 11%, based on the WHO FRAX algorithm. The BMD for the Total Hip(Left) decreased, changing by -3.9% since the last DXA exam. The BMD for the Total Hip(Right) decreased, changing by -3.5% since the last DXA exam. Discussion: BONE DENSITY IS LOW AT ONE OR MORE SKELETAL SITES. This patient's lowest T-score is low at one or more skeletal sites. It meets the World Health Organization's (WHO) criteria for ?low bone mass? (T-score between -1.0 and -2.5). The patient's 10-year risk of fracture as calculated by FRAX is less than the threshold where pharmacological therapy is recommended by the National Osteoporosis Foundation (NOF). However, all treatment decisions require clinical judgment and consideration of individual patient factors, including patient preferences, comorbidities, previous drug use, risk factors not captured in the FRAX model (e.g., frailty, falls, vitamin D deficiency, increased bone turnover, interval significant decline in bone density) and possible under or overestimation of fracture risk by FRAX. The patient should follow a healthful lifestyle (good nutrition with adequate calcium and vitamin D, and appropriate weight-bearing exercise). Follow-Up: Consider repeating this study in 2 years to reassess this patient's status, or sooner if there is some new clinical indication. Reported by: GILL on 11/19/2024 12:54:00 PM. Reviewed, dictated and finalized at location A.
== END 2024-11-19 12:31 | disposition home or self-care (01) ==
LOC: MICIMG 12:31
PROVIDERS: PCP Internal Medicine; Visit Provider Obstetrics & Gynecology
DX: Z78.0 Asymptomatic menopausal state (principal); M85.852 Other specified disorders of bone density and structure, left thigh; M85.851 Other specified disorders of bone density and structure, right thigh
CPT/HCPCS: 77080

== ENCOUNTER 2025-03-17 07:19 | Outpatient (CLI) | payer MEDICARE, OTHER, SELFPAY ==
--- OUTSIDE RECORDS SUMMARY | 2024-06-20 06:20 | XMS_ITS ---
Author Organization [facility] Address [address] [place] [address] Care Team Providers Care Licensed Dispensing Optician Name Role Phone Rayshawn Berry Primary Care Provider Unavailab zora Washburn MD, Horacio Turcios [phone] REASON FOR VISIT rt hand pain Encounters Encounter Location Date Provider Diagnosis [facility] [address] [place] [address] 06/20/2024 Horacio Washburn MD PLAN OF TREATMENT No Information
--- NOTE | ~2025-03-17 | MM_ITS ---
EXAMINATION: MM screening [facility] BI w mika HISTORY: Screening TECHNIQUE: Craniocaudal and mediolateral oblique 3-D tomosynthesis images were obtained and synthetic 2-D images were generated. CAD analysis was submitted and interpreted. COMPARISON: 09/12/2022 BREAST PARENCHYMAL COMPOSITION: The breasts are heterogeneously dense, which may obscure small masses. FINDINGS: There is no evidence of suspicious mass, calcification, or architectural distortion to suggest malignancy. Focal asymmetry in the right retroareolar region. IMPRESSION: 1. Focal asymmetry in the right retroareolar region. The study is incomplete. A diagnostic mammogram and a diagnostic ultrasound are recommended. 2. No mammographic evidence for malignancy in the left breast. BI-RADS 0: Incomplete-Need additional imaging evaluation. Reviewed, dictated and finalized at location Q.
--- OUTSIDE RECORDS SUMMARY | 2025-03-17 07:24 | XMS_ITS | Encounter Summary ---
Author Organization [facility] Address Formerly [facility] [place] [address] Care Team Providers Care Box Covering Machine Operator Name Role Phone Demetrio Noble MD Unavailable [phone] Rayshawn Beltre MD Unavailable Unavailable Skip Krishnan MD Unavailable [phone] Marj Helms MD Primary Care Provider [phone] Dale Hernandez MD Unavailable Encounter Details Date Type Department Care Team (Late st Contact Info) Description 11/01/20[address] [employer] Message Enc [facility] Radiation Oncology [address] [place] [address] [facility], [facility] Provider Social History Tobacco Use Types Packs/Day Years Used Date Smoking Tobacco: Never Smokeless Tobacco: Never Comments:counseled by Dr Nahed okeefe Alcohol Use Standard Drinks/Week Comments Never 0 (1 standard drink = 0.6 oz pur e alcohol) Humiliation, Afraid, Rape, and Kick questionnair e Answer Date Recorded Within the last year, have y ou been afraid of your partner or ex-partner? No 01/03/2023 Within the last year, have y ou been humiliated or emotionally abused in other ways by your partner or ex-partner? No Within the last year, have y ou been kicked, hit, slapped, or otherwise physically hurt by your partner or ex-partner? No 01/03/2023 Within the last year, have y ou been raped or forced to have any kind of sexual activity by your partner or ex-partner? No 01/03/2023 AUDIT-C Answer Date Recorded Frequency of Alcohol Consumption Never 05/14/2018 Average Number of Drinks Not on file 018 Frequency of Binge Drinking Not on file 05/05 Overall Financial Resource Strain (CARDIA) Answe r Date Recorded How hard is it for you to pa y for the very basics like food, housing, medical care, and heating? Not hard at all 01/03/2023 PHQ-2 Answer Date Recorded Patient Health Questionnaire-2 Score 0 09/27/2024 [facility] - Occupational Stress Questionnaire Answer Date Recorded Do you feel stress - tense, restless, nervous, or anxious, or unable to sleep at night because your mind is troubled all the time - these days? Not at all 01/03/2023 Exercise Vital Sign Answer Date Recorde d On average, how many days pe r week do you engage in moderate to strenuous exercise (like a brisk walk)? 0 days 01/03/2023 On average, how many minutes do you engage in exercise at this level? 0 min 01/03/2023 Hunger Vital Sign Answer Date Recorded Within the past 12 months, y ou worried that your food would run out before you got the money to buy more. Never true 01/04/20 23 Within the past 12 months, t he food you bought just didn't last and you didn't have money to get more. Never true 01/03/2023 PRAPARE - Transportation Answer Date Re corded In the past 12 months, has l ack of transportation kept you from medical appointments or from getting medications? No 06/2022 In the past 12 months, has l ack of transportation kept you from meetings, work, or from getting things needed for daily living? No 01/03/2023 Housing Stability Vital Sign Answer Jarrett e Recorded In the last 12 months, was t here a time when you were not able to pay the mortgage or rent on time? No 01/03/2023 In the last 12 months, how many places have you lived? 1 01/03/2023 In the last 12 months, was t here a time when you did not have a steady place to sleep or slept in a longterm (including now)? No 01/03/2023 Comments No Sex and Gender Information Value Date Recorded Sex Assigned at Female 08/05/2024 9:06 AM NURSERY MANAGER Legal Sex Female 2:35 PM NURSERY MANAGER Gender Identity Female 08/05/2024 9:06 AM NURSERY MANAGER Sexual Orientation Straight 08/05/2024 9: 06 AM NURSERY MANAGER documented as of this encounter Functional Status * Are you deaf or do you have serious difficulty hearing Answer Date of Assessment Author Status Yes 01/03/2023 12:13 PM CDT Estrellita Villarreal RN Active * Are you blind or do you have serious difficulty seeing, even when wearing glasses? Answer Date of Assessment Author Status No 01/03/2023 12:13 PM CDT Estrellita Villarreal RN Active * Do you have serious difficulty walking or climbing stairs? Answer Date of Assessment Author Status No 01/03/2023 12:13 PM CDT Estrellita Villarreal RN Active * Do you have difficulty dressing or bathing? Answer Date of Assessment Author Status No 01/03/2023 12:13 PM CDT Estrellita Villarreal RN Active * Because of a physical, mental, or emotional condition, do you have difficulty doing errands alone such as visiting a doctor's office or shopping? Answer Date of Assessment Author Status No 01/03/2023 12:13 PM CDT Estrellita Villarreal RN Active documented as of this encounter Mental Status * Because of a physical, mental, or emotional condition, do you have serious difficulty concentrating, remembering, or making decisions? Answer Entry Date Author Status No 01/03/2023 12:13 PM CDT Estrellita Villarreal RN Active documented in this encounter Progress Notes * Haleigh Serna RN - 11/01/2024 1:09 PM CDT OK. Thank you. I will make Dr. Hernandez aware and cancel this appointment. Please let us know if you need anything. Haleigh ===View-only below this line=== ----- Message ----- From:Norma Reinoso Sent:11/01/2024 11:30 AM CDT To:MEDICAL OFFICE Subject:Appointment Cancellation Request Hi, I have to cancel this appointment because I?m going to [facility] center for Advanced medicine radiology oncology with doctor Bernabe Emanuel. [phone] Thank you ----- Message ----- From:MEDICAL OFFICE Sent:11/01/2024 11:20 AM CDT To:Normatfif Reinoso Subject:Appointment Cancellation Request Pranav Green! Are you wanting to reschedule this appointment? Haleigh GIFFORD ----- Message ----- From:Norma Reinoso Sent:11/01/2024 11:04 AM CDT To:Dr. Dale Hernandez Subject:Appointment Cancellation Request Norma Reinoso would like to cancel the following appointments: Dr. Dale Hernandez in [facility] ([id number]), 11/11/2024 9:15 AM Comments: documented in this encounter Plan of Treatment Upcoming Encounters Date Type Department Care Team (Late st Contact Info) Description 03/24/2025 12:40 PM CDT Office Visit [facility] Mult[facility] - [place] [address] [address] [place] [address] Marj Helms MD [address] [place] [id number] documented as of this encounter Visit Diagnoses Not on filedocumented in this encounter Additional Health Concerns Assessment Noted Time PHQ-9 Depression Total Score: 1 09/28/19 9:22 AM CDT documented as of this encounter Care Teams Box Covering Machine Operator Relationship Specialty Start Date End Date Marj Helms MD [address] [place] [id number] PCP - General INTERNAL MEDICINE 02/22/21 Demetrio Noble MD [facility]. [address] [address] [place] Continuous Improvement Engineer CARDIOVASCULAR DISEASE 11/04/15 Rayshawn Beltre MD [address] [facility]. [address] [address] Consulting Physician ORTHOPAEDICS 01/03/21 Skip Krishnan MD [address] [place] [address] Consulting Physician NEUROLOGY 01/03/21 Dale Hernandez MD [address] [place] [address] Consulting Physician RADIATION ONCOLOGY 11/09/23 documented as of this encounter
--- OUTSIDE RECORDS SUMMARY | 2025-03-17 07:25 | XMS_ITS | Encounter Summary ---
Author Organization [facility] Address [facility] [place] [address] Care Team Providers Care Window Display Designer Name Role Phone Demetrio Nbole MD Unavailable [phone] Rayshawn Beltre MD Unavailable Unavailable Skip Krishnan MD Unavailable [phone] Marj Helms MD Primary Care Provider [phone] Pilar Huerta RN Unavailable [phone] Dale Hernandez MD Unavailable Encounter Details Date Type Department Care Team (Late st Contact Info) Description 01/06/2023 Misc Documentation [facility] [address] [place] [address] Cl[place] [address] [phone] (Work) Social History Tobacco Use Types Packs/Day Years [...] Date Recorded Patient Health Questionnaire-2 Score 0 08/01/2022 [facility] - Occupational Stress [...] place to sleep or slept in a long-term (including now)? No 01/03/2023 Comments No Sex and Gender Information Value Date Recorded Sex Assigned at Female 08/05/2024 9:06 AM TRAINING AND QUALITY MANAGER Legal Sex Female 2:35 PM TRAINING AND QUALITY MANAGER Gender Identity Female 08/05/2024 9:06 AM TRAINING AND QUALITY MANAGER Sexual Orientation Straight 08/05/2024 9: 06 AM TRAINING AND QUALITY MANAGER documented as of this encounter Functional Status * Are you deaf or do you have serious difficulty hearing Answer Date of Assessment Author Status Yes 01/03/2023 12:13 PM CDT Estrellita Villarreal RN Active * Are you blind or do you have serious difficulty seeing, even when wearing glasses? Answer Date of Assessment Author Status No 01/03/2023 12:13 PM FERNIET Estrellita Villarreal RN Active * Do you have serious difficulty walking or climbing stairs? Answer Date of Assessment Author Status No 01/03/2023 12:13 PM CDT Estrellita Villarreal RN Active * Do you have difficulty dressing or bathing? Answer Date of Assessment Author Status No 01/03/2023 12:13 PM FERNIET Estrellita Villarreal RN Active * Because of a physical, mental, or emotional condition, do you have difficulty doing errands alone such as visiting a doctor's office or shopping? Answer Date of Assessment Author Status No 01/03/2023 12:13 PM FERNIET Estrellita Villarreal RN Active documented as of this encounter Mental Status * Because of a physical, mental, or emotional condition, do you have serious difficulty concentrating, remembering, or making decisions? Answer Entry Date Author Status No 01/03/2023 12:13 PM FERNIET Estrellita Villarreal RN Active documented in this encounter Plan of Treatment Upcoming Encounters Date Type Department Care Team (Late st Contact Info) Description 03/24/2025 12:40 PM CDT Office Visit [facility] Multispecialty Care - [address] [place] [address] Marj Helms MD [address] [facility] [address] [place] [address] documented as of this encounter Visit Diagnoses Not on filedocumented in this encounter Additional Health Concerns Assessment Noted Time PHQ-9 Depression Total Score: 0 09/07/19 22 1:14 PM CDT documented as of this encounter Care Teams Window Display Designer Relationship Specialty Start Date End Date Marj eHlms MD [address] [facility] [address] [place] [address] PCP - General INTERNAL MEDICINE 02/22/21 Demetrio Noble MD Three [facility]. [address] [address] [place] CARDIOVASCULAR DISEASE 11/04/15 Rayshawn Beltre MD Three [facility]. [address] [address] Consulting Physician ORTHOPAEDICS 01/03/21 Skip Krishnan MD [address] [address] Consulting Physician NEUROLOGY 01/03/21 Pilar Huerta, RN [address] [place], [place] [phone] Powder Press Operator (Ambulatory) REGISTERED NURSE 01/03/23 01/25/23 Dale Hernandez MD [address] [place] [address] Consulting Physician RADIATION ONCOLOGY 11/09/23 documented as of this encounter
--- OUTSIDE RECORDS SUMMARY | 2025-03-17 07:25 | XMS_ITS | Clinical Summary ---
Author Organization [facility] Address [address] [facility] [place] [address] Care Team Providers Care Day Camp Unit Leader Name Role Phone Unavailable Primary Care Provider Unavailabl e Source Comments [facility],non-owned Affiliates and Associated Physician Practices is amultiple site organization consisting of ambulatory clinics and hospital sitesin [place], [place], [place] and [place]. This disclosure is being madepursuant to the Care Everywhere program and may not contain all information available regarding this patient. Last updated 18.[facility] Immunizations Immunization Administration Dates Next Due INFLUENZA VACCINE, QUADR. (F LUZONE; FLULAVAL; FLUARIX; AFLURIA QUADRIVALENT; 6MO+), 0.5 ML (IIV4) 03/18/2020 iNFLUENZA VACCINE, RECOM-MATHEW, QUADR. (FLUBLOCK QUADRIVALENT; 18Y+) (RIV4) 03/18/2018 Social History Tobacco Use Types Packs/Day Years Used Date Smoking Tobacco: Never Assessed Comments Unknown Sex and Gender Information Value Date Recorded Sex Assigned at Not on file Legal Sex Female 6:28 AM VETERINARY LABORATORY TECHNICIAN Gender Identity Not on file Sexual Orientation Not on file Plan of Treatment Health Maintenance Due Date Last Done Comments BONE DENSITY TESTING 1956 COLOGUARD (AGES 45-75) - COLON CA SCREENING 1956 COLON MONITORING 1956 COLONOSCOPY - COLON CA SCREENING 1956 CT COLONOGRAPHY - COLON CA SCREENING 1956 Colorectal Cancer Screening 1956 FIT - COLON CA SCREENING 1956 FLEX SIG - COLON CA SCREENING 1956 LIPID TESTING 1956 MAMMOGRAM 1956 HEPATITIS C SCREENING 05/17/1974 DTAP/TDAP/TD VACCINES (1 - Tdap) 1975 PNEUMOCOCCAL VACCINE 50+ (1 of 1 - PCV) 2006 ZOSTER VACCINE (1 of 2) 2006 DEPRESSION SCREENING 06/05/2024 COVID-19 VACCINE (1 - season) 2025 INFLUENZA VACCINE (#1) 2025 0, 02/15/2019, 03/18/2018, Additional history exists Respiratory Syncytial Virus (RSV) Vaccine Pt: or over 60 yrs (1 - 1-dose 75+ series) 2031 HEPATITIS B VACCINE Aged Out No longe r eligible based on patient's age to complete this topic HIB VACCINE Aged Out No longer eligi ble based on patient's age to complete this topic HPV VACCINE Aged Out No longer eligi ble based on patient's age to complete this topic MENINGOCOCCAL (Group B) VACCINE SHARED DECISION-MAKING Aged Out No longer eligible based on patient's age to complete this topic MENINGOCOCCAL GROUPS A/C/Y/W VACCINE Aged Out No longer eligible based on patient's age to complete this topic Insurance
--- OUTSIDE RECORDS SUMMARY | 2025-03-17 07:25 | XMS_ITS | Clinical Summary ---
Author Organization [facility] [address] Address [address] [place] [id number] Phone Care Team Providers Care Upset Welding Machine Operator Name Role Phone Melissa Aguirre MD Unavailable Marj Helms MD Primary Care Provider [phone] Allergies Active Allergy Reactions Criticality Noted Date Comments Dexamethasone Swelling Medium 01/12/2024 Erenumab-Aooe Swelling Medium 10/14/2020 Facial swelling Evolocumab Swelling Medium 03/19/2024 Gabapentin Rash Medium 07/05/2019 Runny nose Latex Unknown 04/29/2024 Onabotulinumtoxina Swelling Medium 07/12/2021 Pregabalin Dizziness Low 05/10/2021 Prochlorperazine Rash Medium 08/09/2021 Medications valACYclovir (VALTREX) 500 mg tablet take 1 tablet by oral route every day 0 0 7 Active ZOLMitriptan (ZOMIG) 5 mg tablet TAKE 1 TABLET ONCE NEEDED FOR MIGRAINE FOR UP TO 1 DOSE 27 tablet 7 Active atenoloL (TENORMIN) 100 mg tablet Take 1 tablet (100 mg total) by mouth daily 9 Active AIMOVIG AUTOINJECTOR 70 mg/mL auto-injector subcutaneous injection 9 Active ibuprofen (ibuprofen) 200 mg tab/cap Take by mouth every 6 (six) hours as needed for pain Active CALCIUM ORAL Take 1,200 mg by mouth daily Active cholecalciferol, vitamin D3, (VITAMIN D3 ORAL) Take 4,000 Units by mouth daily Active multivitamin tabletIndication s:Vitamin Deficiency Prevention Take 1 tablet by mouth daily Active traMADoL (ULTRAM) 50 mg tablet 1 Active ALPRAZolam (XANAX) 0.25 mg tablet 4 Active amLODIPine (NORVASC) 5 mg tablet 4 Active amoxicillin 500 mg tablet/capsule 4 Active celecoxib (CeleBREX) 200 mg capsule 4 Active cetirizine (ZyrTEC) 10 mg capsule Take 10 mg by mouth daily 2 Active cyanocobalamin (Vitamin B-12) 1,000 mcg tablet Take 2 tablets (2,000 mcg total) by mouth daily 4 Active FLUoxetine 10 mg tablet/capsule 3 Active L. acidophilus/Bifi d. animalis 32 billion cell capsule Take 1 tablet by mouth daily Active predniSONE (DELTASONE) 20 mg tablet 4 Active Ubrelvy 50 mg tablet 3 Active LORazepam (ATIVAN) 1 mg tabletIndication s:anxiety,claust rophobic Take 1 mg one hour before MRI, may repeat in 30 minutes if needed 2 tablet 4 Active CARVEDILOL ORAL Carvedilol Act antione fluoxetine HCl (FLUOXETINE ORAL) Fluoxetine Active UNABLE TO FIND Misc. Devices A ctive cetirizine HCl (ZYRTEC ORAL) ZyrTEC Active ZOLMITRIPTAN ORAL ZOLMitriptan Active BD Integra Syringe 3 mL 25 gauge x 1 syringe 5 Active nystatin cream 5 Active azithromycin (ZITHROMAX) 250 mg tablet 5 Active ergocalciferol, vitamin D2, (VITAMIN D2 ORAL) Vitamin D Active cyanocobalamin, vitamin B-12, (VITAMIN B-12 ORAL) Vitamin B-12 Active UNABLE TO FIND valACYclovir HCl Active ubrogepant (UBRELVY ORAL) Ubrelvy Activ e evolocumab (REPATHA SYRINGE SUBQ) Repatha Active Lactobacillus acidophilus (PROBIOTIC ACIDOPHILUS ORAL) Probiotic Active POLYETHYLENE GLYCOL 3350 ORAL Polyethylene Glycol Active cyanocobalamin (Vitamin B-12) 1,000 mcg/mL injection 5 Active Active Problems Problem Noted Date Diagnosed Date Schwannoma 11/21/2023 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 Piriformis syndrome, right 01/11/2023 Sacroiliitis 01/11/2023 Degenerative disc disease, lumbar 01/06/2023 Foraminal stenosis of lumbar region 01/06/2023 Lumbar spine instability 01/03/2023 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 07/29/2022 Stage 3a chronic kidney disease 07/29/2022 Vestibular schwannoma 07/29/2022 Depression 11/08/2021 Vitamin B12 deficiency 11/08/2021 Spondylolisthesis of lumbar region 10/29/2020 Assessment & Plan (10/29/2020 9:54 AM CDT): Assessment Spondylolisthesis with spinal stenosis L4-[address] scan lumbar spine as she has not had an updated imaging study in a couple of years and return visit to consider surgical options as all conservative treatment has been exhausted Other chronic pain 10/14/2020 Upper respiratory infection 07/05/2019 Essential hypertension 05/22/2018 Overview (11/15/2023): Last Assessment & Plan: Well controlled. 1. Medication: continue current medication regimen unchanged, encouraged home monitoring, call for persistent elevations at or above 130/85. 2. Recheck in 6 months, sooner should new symptoms or problems arise. Lumbar disc herniation 03/27/2018 Anxiety 03/16/2018 Myalgia 01/02/2018 Assessment & Plan (01/02/2018 9:42 AM CDT): Pt reports myalgias in the lower legs, which improves w/ massage therapy. Will check for evidence of autoimmune etiology Exposure to ionizing radiation 12/17/2017 Thyroid nodule 12/04/2017 Overview (11/15/2023): Evaluated with ultrasound and CT scan, 12/21/2017, with [facility]. 6 mm left thyroid nodule likely benign. Renal insufficiency, mild 05/11/2017 Overview (11/15/2023): Last Assessment & Plan: Most recent lab work indicated stable kidney function. Repeat lab work in 6 months. Multiple joint pain 11/23/2016 Assessment & Plan (01/02/2018 9:42 AM CDT): Pt continues zorvolex, which she states helps her joint pain. Her previous serologies were negative for evidence of rheumatologic etiology for her joint pain. However, her hand/wrist us showed evidence of active inflammation. She has been reluctant to start HCQ. Xrays in 11/19 showed evidence of OA. She is not interested in seeing pain management Discussed repeating some of her blood work for monitoring for changes in her serologies Will refill her zorvolex today Follow up in 4 mo, sooner if needed Assessment & Plan (11/24/2016 1:02 PM CDT): Discussed starting HCQ or just waiting and watching. Patient does not want to start HCQ at this time. Most of her pain is probably Oa. Will call her back once xrays have been resulted. She is to continue with zorvolex in the meantime. Will refill voltaren gel. Patient seen with Dr. Aguirre. Leg pain, bilateral 10/10/2016 Overview (11/15/2023): Last Assessment & Plan: See bilateral hip pain, above. Bunion, right 07/18/2016 Medication management 04/11/2016 Overview (11/15/2023): Last Assessment & Plan: Repeat lab work in 6 months. Palpitations 03/11/2016 Chronic migraine without aur a without status migrainosus, not intractable 12/14/2015 Overview (11/15/2023): Last Assessment & Plan: Improved control of symptoms with use of zolmitriptan, Aimovig, diclofenac, and Fiorinal as prescribed by her neurologist. No treatment change at this time. 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 04/14/2014 Overview (09/09/2016): Chronic migraine Constipation 11/25/2013 Thrombosed external hemorrhoids 11/25/2013 Immunizations Immunization Administration Dates Next Due Hep B Vaccine 06/15/2005,02/01/2005,12/27/2004 Influenza, Quadrivalent, Rec ombinant, Egg Free, Preservative Free, Intramuscular 03/18/2018 Influenza, Quadrivalent, Spl it, Preservative Free, Intramuscular 03/15/2021,03/18/2020,02/15/2019,03/13,05/07/2013 Influenza, Unspecified 03/27/2023,03/13/2017,08/2012 Pneumococcal Conjugate PCV 13 02/27/2023 Pneumococcal Polysaccharide PPV23 07/12/2021 Tdap 05/10/2021 ZOSTER Recombinant 07/31/2022,03/23/2022 Surgical History Surgery Date Site/Laterality Comments ENDOMETRIAL ABLATION endometrial ablation BLEPHAROPLASTY blepharoplasty TONSILLECTOMY 06/05/1961 - 06/04/1962 APPENDECTOMY 06/05/1967 - 06/04/1968 OSTEOTOMY 08/01/2017 Left Medical History Medical History Date Comments Arthritis Arthritis Hypertension Hypertension Osteoarthritis Osteoarthritis; Comments: GAMALIEL 11/03/2016 - Osteoarthritis Osteopenia Chronic migraine Depression Family History Medical History Relation Name Comments Early Father Heart disease Mother heart problems ; Cause of : heart problems Hypertension Mother Relation Name Status Comments Father Mother Social History Tobacco Use Types Packs/Day Years Used Date Smoking Tobacco: Never Smokeless Tobacco: Never Tobacco Cessation:Counseling Given: No Alcohol Use Standard Drinks/Week Comments No 0 (1 standard drink = 0.6 oz pur e alcohol) AUDIT-C Answer Date Recorded Q1: How often do you have a drink containing alcohol? Never 11/15/2023 Q2: How many drinks containi ng alcohol do you have on a typical day when you are drinking? Patient does not drink Q3: How often do you have si x or more drinks on one occasion? 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 Not on file Not on file Not on file Obstetrics History Last Filed Vital Signs Vital Sign Reading Time Taken Comments Blood Pressure 122/76 09/18/2024 2:51 PM CDT Pulse 62 09/18/2024 2:51 PM CDT Temperature 36.7 C (98.1 F) 09/18/2024 2:51 PM CDT Respiratory Rate 17 09/18/2024 2:51 PM CDT Oxygen Saturation 98% 09/18/2024 2:51 PM CDT Inhaled Oxygen Concentration - - Weight 59.3 kg (130 lb 11.2 oz) 10/16/2024 9:44 AM CDT Height 157.5 cm (5' 2.01) 09/18/2024 2:51 PM CD T Body Mass Index 23.9 09/18/2024 2:51 PM CDT Plan of Treatment Health Maintenance Due Date Last Done Comments Breast Cancer Screening-Mammogram 1955 Colon Cancer Screening-Colonoscopy 1955 Osteoporosis Screening-Bone Density Scan 1955 Well Visit 65+ 2021 Depression Screening 10/29/2021 10/29/2020 Fall Risk Assessment 12/12/2024 12/13/2023 Covid-19 Vaccine (4 - 2024-2 6 season) 2025 05/23/2021, 09/13/2020, 08/18/2020 Influenza Vaccine (#1) 2025 , 03/27/2023, 03/15/2021, Additional history exists DTaP/Tdap/Td Vaccine (2 - Td or Tdap) 05/10/2031 05/10/2021 Hepatitis B Screening Completed 06/15/2005 , 02/01/2005, 12/27/2004 Hepatitis C Screening Completed 11/03/2016 Zoster Vaccine Completed 07/31/2022, 03/23/2022 Pneumococcal vaccine 65+ Completed 02/27/2023, 12/2021 Procedures Procedure Name Priority Date/Time Associated Diagnosis Comments HEPATITIS C ANTIBODY Routine 11/03/2016 11:47 AM CDT from Last 3 Months or Most Recently Relevant to Health Maintenance Results * Hepatitis C antibody (11/03/2016 11:47 AM CDT) Hep C Ab NON-REACTI VE NON-REACTI VE [facility] [place] SIGNAL TO CUT-OFF 0.01 <1.00 [facility] [place] 11/03/2016 11:4 7 AM CDT 11/03/2016 11:48 AM CDT Narrative [facility] - 11/16/2016 4:46 AM CDT MULTIPLE COLLECTION TIMES FOR SAME TEST TYPE. Resulting Agency Comment Performing Organization Information: Site ID: [id number] Name: Amy Garcia Address: [address] [place] [address] Director: Stanislav Best D.O., MPH us Melissa Aguirre MD LAB MICROBIOLOGY - GENERAL ORDER LEEANN Final Result [facility] [place] from Last 3 Months or Most Recently Relevant to Health Maintenance Insurance [facility] MEDICARE FOR LIFE [facility] MEDICARE FOR LIFE Care Teams Upset Welding Machine Operator Relationship Specialty Start Date End Date Marj Helms MD [address] [place] [address] PCP - General Internal Medicine 11/03/23 [place] [address] [facility] [address] [place] [address] Rheumatology 04/11/17
--- OUTSIDE RECORDS SUMMARY | 2025-03-17 07:25 | XMS_ITS | Encounter Summary ---
Author Organization [facility] Address [facility] [place] [address] Care Team Providers Care Pantry Cook Name Role Phone Dionicio Sosa MD Primary Care Provider [phone] Demetrio Noble MD Unavailable [phone] Rayshawn Beltre MD Unavailable Unavailable Skip Krishnan MD Unavailable [phone] Marj Helms MD Primary Care Provider [phone] Pilar Huerta RN Unavailable [phone] Dale Hernandez MD Unavailable Encounter Details Date Type Department Care Team (Late st Contact Info) Description 01/18/2016 Abstract [facility] CONVERSION [address] [place], [place] [id number] , Generic Conversion, Social History Tobacco Use Types Packs/Day Years Used Date Smoking Tobacco: Never Assessed Comments Unknown Sex and Gender Information Value Date Recorded Sex Assigned at Female 08/05/2024 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 Legal Sex Female 2:35 PM 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 Gender Identity Female 08/05/2024 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 Sexual Orientation Straight 08/05/2024 9: 06 AM 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 documented as of this encounter Plan of Treatment Upcoming Encounters Date Type Department Care Team (Late st Contact Info) Description 03/24/2025 12:40 PM CDT Office Visit [facility] [place] [address] [address] [place] [address] Marj Helms MD [address] [place] [address] [address] [place] [address] documented as of this encounter Visit Diagnoses Not on filedocumented in this encounter Additional Health Concerns Infection Onset Date Last Indicated Resolved Time COVID-19 Rule Out 02/22/2021 02/22/2021 02/22/2021 12:55 PM CDT documented as of this encounter Care Teams Pantry Cook Relationship Specialty Start Date End Date Dionicio Sosa MD PCP - General INTERNAL MEDICINE 11/04/15 02/21/21 Majr Helms MD [address] [facility] [address] [place] [address] PCP - General INTERNAL MEDICINE 02/22/21 Demetrio Noble MD [facility]. [address] [address] [place] [employer] Finisher CARDIOVASCULAR DISEASE 11/04/15 Rayshawn Beltre MD [facility]. [address] [address] Consulting Physician ORTHOPAEDICS 01/03/21 Skip Krishnan MD [address] [place] [address] Consulting Physician NEUROLOGY 01/03/21 Pilar Huerta, RN [address] [place] [address] Backend Tester (Ambulatory) REGISTERED NURSE 01/03/23 01/25/23 Dale Hernandez MD [address] [place] [address] Consulting Physician RADIATION ONCOLOGY 11/09/23 documented as of this encounter
--- OUTSIDE RECORDS SUMMARY | 2025-03-17 07:25 | XMS_ITS | Clinical Summary ---
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 Name Role Phone Demetrio Noble MD Unavailable [phone] Rayshawn Beltre MD Unavailable Unavailable Skip Krishnan MD Unavailable [phone] Marj Helms MD Primary Care Provider [phone] Dale Hernandez MD Unavailable Allergies Active Allergy Reactions Criticality Noted Date Comments Erenumab-Aooe Swelling Medium 10/14/2020 Facial swelling Onabotulinumtoxina Swelling Medium 07/12/2021 Dexamethasone Swelling 01/12/2024 Fluoxetine Other (see comment) 12/30/2024 Thinning of hair/hair loss Gabapentin Rash Medium 07/05/2019 Runny nose Latex Unknown 04/29/2024 Pregabalin Dizziness Low 05/10/2021 Prochlorperazine Rash Medium 08/09/2021 Evolocumab Swelling 03/19/2024 Medications Probiotic Product (PROBIOTIC ADVANCED) Cap Take 1 tablet by mouth daily. Active Cetirizine HCl (ZYRTEC ALLERGY) 10 MG CapIndications:En vironmental allergies Take 10 mg by mouth daily. 90 capsule 1 022 Active Misc. Devices MiscIndications:S timoteo instabilities of lumbar region 1 each by Does not apply route continuous. LSO for continuous wear while ambulating or up in chair. 1 each 023 Active Calcium Carbonate-Vit D-Min (CALCIUM 1200 OR) Take 1,200 mg by mouth daily. Active polyethylene glycol (GLYCOLAX) packet Take 240 mLs (17 g total) by mouth as needed. Dissolve powder in 240 mL water Active vitamin D3 (CHOLECALCIFEROL) 75 mcg Tab tabletIndications :Vitamin D deficiency Take 1 tablet (75 mcg total) by mouth daily. Active B-D 3CC LUER-LUKE SYR 25GX1 25G X 1 3 ML Misc Active ZOLMitriptan 5 MG TabIndications:In tractable migraine without aura and without status migrainosus TAKE 1 TABLET DAILY NEEDED 90 tablet 1 Active Additional Information Patient not taking.Reported on 02/24/2025 celecoxib (CELEBREX) 200 MG capsuleIndication s:Arthritis, multiple joint involvement Take 1 capsule (200 mg total) by mouth 2 (two) times daily. 180 capsule 1 Active cyanocobalamin (B-12) 1000 MCG/ML injectionIndicati ons:Drug therapy Inject 1 mL (1,000 mcg total) into the muscle every 30 (thirty) days. 1 mL 6 Active UBRELVY 50 MG tabletIndications :Intractable migraine without aura and without status migrainosus Take one tablet twice daily as needed; 48 tablets for 90 days with 3 refills. 48 tablet 3 Active valACYclovir (VALTREX) 500 MG tabletIndications :Herpes Take 1 tablet (500 mg total) by mouth 2 (two) times daily. 36 tablet 2 Active Follett & Syringes MiscIndications:D rug therapy Use syringes and needles to dispense Vit B 12 monthly 30 each 11 Active atenolol (TENORMIN) 50 MG tabletIndications :Intractable migraine without aura and without status migrainosus,Essen tial hypertension TAKE 1 TABLET(50 MG) BY MOUTH DAILY 90 tablet 1 025 Active ALPRAZolam (XANAX) 0.25 MG tabletIndications :Anxiety Use alprazolam daily only as needed for panic attacks. 15 tablet 025 Active sucralfate (CARAFATE) 1 G tabletIndications :Gastroesophageal reflux disease without esophagitis Take 1 tablet (1 g total) by mouth 4 (four) times daily before meals and nightly. 360 tablet 2 08/12/2 025 Active Additional Information Patient not taking.Reported on 02/24/2025 vortioxetine (TRINTELLIX) 10 MG tabletIndications :Mild episode of recurrent major depressive disorder Take 1 tablet (10 mg total) by mouth daily. 30 tablet 2 Active amLODIPine (NORVASC) 5 MG tabletIndications :Essential hypertension Take 1 tablet (5 mg total) by mouth daily. 90 tablet 1 Active ezetimibe (ZETIA) 10 MG tabletIndications :Mixed hyperlipidemia Take 0.5 tablets (5 mg total) by mouth daily. 45 tablet Active pancrelipase, Ish-Ztlf-Lqyp, (CREON) 3000 UNIT capsuleIndication s:Intestinal malabsorption, unspecified type (HHS/HCC) Take one capsule three times daily with meals. 270 capsule Active triamcinolone (KENALOG) 0.1 % creamIndications: Irritant contact dermatitis, unspecified trigger APPLY TOPICALLY TWICE A DAY 80 g Active triamcinolone (KENALOG) 0.1 % creamIndications: Irritant contact dermatitis, unspecified trigger Apply topically 2 (two) times daily. 80 g 024 2024 Discontinued amLODIPine (NORVASC) 2.5 MG tabletIndications :Essential hypertension Take 1 tablet (2.5 mg total) by mouth daily. 90 tablet 1 025 2024 Discontinued(R eorder) ezetimibe (ZETIA) 10 MG tabletIndications :Mixed hyperlipidemia Take 1 tablet (10 mg total) by mouth daily. 90 tablet 025 2024 Discontinued(R eorder) vortioxetine (TRINTELLIX) 10 MG tabletIndications :Mild episode of recurrent major depressive disorder Take 1 tablet (10 mg total) by mouth daily. 30 tablet 2 025 2024 Discontinued(R eorder) pancrelipase, Rqf-Oabq-Aaab, (CREON) 3000 UNIT capsuleIndication s:Intestinal malabsorption, unspecified type (HHS/HCC) Take 1 capsule (3,000 units of lipase total) by mouth 3 (three) times daily with meals. 90 capsule 1 025 2024 Discontinued Active Problems Problem Noted Date Diagnosed Date Piriformis syndrome, right 01/11/2023 Sacroiliitis 01/11/2023 Degenerative disc disease, lumbar 01/06/2023 Foraminal stenosis of lumbar region 01/06/2023 S/P lumbar laminectomy 01/06/2023 Lumbar spine instability 01/03/2023 S/P lumbar fusion 01/03/2023 Lumbar radiculopathy 01/03/2023 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 07/29/2022 Vestibular schwannoma 07/29/2022 Stage 3a chronic kidney disease 07/29/2022 Vitamin B12 deficiency 11/08/2021 Depression 11/08/2021 Other chronic pain 10/14/2020 Spondylolisthesis of lumbar region 06/07/2018 Overview (02/22/2021): Last Assessment & Plan: Assessment Spondylolisthesis with spinal stenosis L4-[address] scan lumbar spine as she has not had an updated imaging study in a couple of years and return visit to consider surgical options as all conservative treatment has been exhausted Essential hypertension 05/22/2018 Assessment & Plan (02/15/2019 9:48 AM CDT): Well controlled. 1. Medication: continue current medication regimen unchanged, encouraged home monitoring, call for persistent elevations at or above 130/85. 2. Recheck in 6 months, sooner should new symptoms or problems arise. Assessment & Plan (08/18/2018 9:52 AM CDT): Well-controlled on present medications. Obtain routine lab work today for monitoring purposes and continue current treatments. Lumbar facet arthropathy 05/14/2018 Assessment & Plan (02/15/2019 9:49 AM CDT): Undergoing physical therapy for chronic low back pain, consider neurosurgical intervention if refractory. Assessment & Plan (08/18/2018 9:54 AM CDT): See hip pain, above. Lumbar disc herniation 03/27/2018 Anxiety 03/16/2018 Radicular pain of sacrum 03/07/2018 Exposure to ionizing radiation 12/17/2017 Thyroid nodule 12/04/2017 Overview (01/03/2021): Evaluated with ultrasound and CT scan, 12/21/2017, with [place] [facility]. 6 mm left thyroid nodule likely benign. Renal insufficiency, mild 05/11/2017 Assessment & Plan (02/15/2019 9:49 AM CDT): Most recent lab work indicated stable kidney function. Repeat lab work in 6 months. Assessment & Plan (08/18/2018 9:54 AM CDT): Monitor closely for ongoing use of NSAIDs, as well as chronic diuretic treatment. Check CMP today. Multiple joint pain 11/23/2016 Overview (08/01/2018): Last Assessment & Plan: Pt continues zorvolex, which she states helps [...] up in 4 mo, sooner if needed Leg pain, bilateral 10/10/2016 Assessment & Plan (02/15/2019 9:48 AM CDT): See bilateral hip pain, above. Assessment & Plan (08/18/2018 9:52 AM CDT): See hip pain, above. Bunion, right 07/18/2016 Medication management 04/11/2016 Assessment & Plan (02/15/2019 9:50 AM CDT): Repeat lab work in 6 months. Assessment & Plan (08/18/2018 9:55 AM CDT): Checking routine labs today (see orders) for ongoing medication monitoring. Palpitations 03/11/2016 Assessment & Plan (06/06/2024 5:14 PM AUTO HIKER): Counseled that albuterol inhaler may increase her heart rate and contributing to palpitations. She demonstrated verbal agreement and is okay to try inhaler. Bilateral hip pain 12/14/2015 Assessment & Plan (02/15/2019 9:46 AM CDT): Persistent symptoms, likely secondary to spinal stenosis based on patient's report. Currently undergoing physical therapy. Previous treatment with interventional pain management, but patient was unable to tolerate secondary to side effects of medications. Considering evaluation by neurosurgery. Continues on current medications. Assessment & Plan (08/18/2018 9:54 AM CDT): Patient with chronic facet joint arthritis and pain, currently seeing interventional pain management with injection therapies, along with chronic use of diclofenac and gabapentin. Patient reports a reaction to last injection. She believes it to be related to injected dexamethasone. However on review of medications from the surgical note, patient received triamcinolone, which she reports she has received in the past without problems. Will advise her of this and encourage her to continue with injection therapy so as to hopefully ameliorate some of her symptoms. Check routine lab work for chronic use of diclofenac. Chronic migraine without aur a without status migrainosus, not intractable 12/14/2015 Assessment & Plan (02/15/2019 9:47 AM CDT): Improved control of symptoms with use of zolmitriptan, Aimovig, diclofenac, and Fiorinal as prescribed by her neurologist. No treatment change at this time. Resolved Problems Problem Noted Date Diagnosed Date Resolved Date BMI 24.0-24.9, adult 10/15/2019 021 Intractable migraine with au ra with status migrainosus 05/22/2018 02/15/2019 Assessment & Plan (08/18/2018 9:50 AM CDT): Patient has been refractory to treatment with multiple different medications. Dr. Enriquez continues to manage her symptoms, currently treating her with imipramine as well as Fioricet, though he is attempting to get her coverage for AIMOVIG. On review of form from [employer], there are portions with incorrect information. Will update and recent, hopefully getting approval with the updated information. Continue management per Dr. Enriquez. Neck swelling 12/04/2017 02/15/2019 Overview (08/01/2018): Transitioned From: Lipoma of skin and subcutaneous tissue of neck Medication reaction 11/01/2017 02/16/20 19 Overview (08/01/2018): Description: Klor-Con specifically, facial urticaria, recurred with 1/2 dose as well. Hypokalemia 05/11/2017 02/15/2019 Assessment & Plan (08/18/2018 9:55 AM CDT): Uncertain etiology, given patient's current medications. We will repeat testing today. Hyperglycemia 01/27/2017 02/22/2021 Myalgia 10/14/2016 04/19/2020 Overview (08/01/2018): Last Assessment & Plan: Pt reports myalgias in the lower legs, which improves w/ massage therapy. Will check for evidence of autoimmune etiology Muscle spasm of left shoulder 03/11/2016 02/15/2019 Thrombosed external hemorrhoids 11/25/2013 04/19/2020 Encounters Date Type Department Care Team Description 02/24/2025 3:20 PM CDT Office Visit [place] [id number] [facility] [address] [place] [address] Marj Helms MD Follow Up; Anxiety; Depression; Gastrointestinal Symptoms; Medication Problem; Hyperlipidemia 02/24/2025 Travel 01/14/2025 Telephone [facility] [address] [place] [address] Marj Helms MD Medication Information 12/30/2024 7:20 AM CDT [facility] [address] [place] [address] Marj Helms MD Follow Up; Anxiety; Abdominal Pain; Depression; Gi Problem 12/30/2024 Results Follow-Up [facility] [place] [address] [place] [address] Marj Helms MD LIPASE, COMPREHENSIVE METABOLIC PANEL, CBC W/DIFF AUTOMATED 12/30/2024 Telephone [facility] [place] [address] [place] [address] Marj Helms MD Medication Information 12/30/2024 Telephone [facility] [place] [address] [place] [address] Marj Helms MD Medication Information 12/30/2024 Travel from Last 3 Months Immunizations Immunization Administration Dates Next Due Flublok (Quadrivalent) 03/18/2018,03/18/2018 Fluzone 6 Months+ Quad (0.5 mL Prefilled Syringe) 03/15/2021,02/15/2019 Fluzone High Dose (IIV, triv alent, 0.5mL) 03/15/2024 Fluzone High Dose - >Age 65 (Prefilled Syringe) 02/22/2022 Hepatitis B (Generic: Adult) 06/15/2005,02/02/20 05,12/27/2004 Influenza Adult (Generic) 03/27/2023,,03/13/2017,2016,05/07/2013 PFIZER COVID-19 (ORIGINAL FORMULATION, PURPLE CAP) mRNA, LNP-S, PF, 30 MCG/0.3 ML DOSE 05/23/2021,09/13/2020,08/18/2020 Pneumococcal (Pneumovax 23) 07/12/2021 Pneumococcal (Prevnar 13) 02/27/2023 Shingrix 07/31/2022,03/23/2022 Tdap (Adacel) 05/10/2021 Family History Medical History Relation Comments Hypertension Mother Relation Status Comments Father Mother Social History Tobacco Use Types Packs/Day Years Used Date Smoking Tobacco: Never Smokeless Tobacco: Never Tobacco Cessation:Counseling Given: Yes Comments:counseled by Dr Helms Alcohol Use Standard Drinks/Week Comments Never 0 [...] Answer Date Recorded Patient Health Questionnaire-2 Score 3 12/30/2024 [facility] - Occupational Stress [...] place to sleep or slept in a correction (including now)? No 01/03/2023 Comments No Sex and Gender Information Value Date Recorded Sex Assigned at Female 08/05/2024 9:06 AM AUTO HIKER Legal Sex Female 2:35 PM AUTO HIKER Gender Identity Female 08/05/2024 9:06 AM AUTO HIKER Sexual Orientation Straight 08/05/2024 9: 06 AM AUTO HIKER Last Filed Vital Signs Vital Sign Reading Time Taken Comments Blood Pressure 127/78 02/24/2025 3:17 PM CDT Pulse 64 02/24/2025 3:17 PM CDT Temperature 36 C (96.8 F) 02/24/2025 3:17 PM CDT Respiratory Rate 18 02/24/2025 3:17 PM CDT Oxygen Saturation 99% 02/24/2025 3:17 PM CDT Inhaled Oxygen Concentration - - Weight 56.5 kg (124 lb 9.6 oz) 02/24/2025 3:17 P M CDT Height 157.5 cm (5' 2) 02/24/2025 3:17 PM CDT Body Mass Index 22.79 02/24/2025 3:17 PM CDT Plan of Treatment Upcoming Encounters Date Type Department Care Team (Late st Contact Info) Description 03/24/2025 12:40 PM CDT Office Visit [facility] - [place] [address] [address] [place], [place] [id number] Marj Helms MD [address] [place] [address] [address] [place], [place] [id number] Health Maintenance Due Date Last Done Comments RSV Immunization or 60+ Years (1 - Risk 60-74 years 1-dose series) 2016 Colorectal Cancer Screening FIT-DNA (3 Years) 08/06/2024 08/06/2021, 08/06/2021 Mammogram Screening 09/12/2024 09/12/2022, COVID-19 Vaccine ( season) 2025 08/07/2023, 05/23/2021, 09/13/2020, Additional history exists Influenza Adult (#1) 2025 03/15/2024, 03/27/2023, 02/22/2022, Additional history exists Annual Medicare Wellness Visit 10/29/2025 Postponed from 2021 (Patient Refused) DTaP, Tdap and Td Vaccines (2 - Td or Tdap) 05/10/2031 05/10/2021 Hepatitis C Completed 02/22/2021 Zoster Vaccines Completed 07/31/2022, 03/23/2022 Pneumococcal Vaccine: 50+ Years Completed 02/27/2023, 07/12/2021 Dexa Scan (General) Completed 11/19/2024, 09/12/2022, 05/16/2019 PHQ-2 (Physician [place]) Completed 12/30/2024 Meningococcal B Vaccine Aged Out No l onger eligible based on patient's age to complete this topic Meningococcal Vaccine Aged Out No stefan macho eligible based on patient's age to complete this topic RSV Immunizations Under 20 Months Aged Out No longer eligible based on patient's age to complete this topic Medical Devices Implanted Type Area Immigration Officer Device Identifier Shelf Expiration Date Model / Serial / Lot Graft Infuse Bone Small - [id number] Implanted:Qty : 1 on 01/03/2023 by Jose Ordoñez MD at [facility] Bone N/A: Spine Lumbar [employer] 08/03/2024 [id number] / / [id number] Description:RECONSTITUTION F OR 15 MINUTES Putty Garden Matrix Dbm/Dbf Bone 6cc - [id number] Implanted:Qty : 1 on 01/03/2023 by Jose Ordoñez MD at [facility] Bone N/A: Spine Lumbar [employer] [id number] 10/19/2024 [id number] / [id number] / [address] Expandable Interbody System: Interbody Cage Implanted:Qty : 1 on 01/03/2023 by Jose Ordoñez MD at [facility] Cage N/A: Spine Lumbar [employer] [id number] 09/09/2030 [id number] / / [id number] Voyager: 4.75 X 40mm Mariusz Implanted:Qty : 2 on 01/03/2023 by Jose Ordoñez MD at [facility] Mariusz Bilateral : Spine Lumbar [employer] [id number] / / Voyager 6.5 X 35mm Screw Implanted:Qty : 2 on 01/03/2023 by Jose Ordoñez MD at [facility] Screw Bilateral : Spine Lumbar [employer] [id number] / / Description:BILATERAL L4 Voyager: 7.5 X 35mm Screw Implanted:Qty : 2 on 01/03/2023 by Jose Ordoñez MD at [facility] Screw Bilateral : Spine Lumbar [employer] [id number] / / Description:BILATERAL L5 Voyager Set Screws Implanted:Qty : 4 on 01/03/2023 by Jose Ordoñez MD at [facility] Bilateral : Spine Lumbar [employer] [id number] / / Procedures Procedure Name Priority Date/Time Associated Diagnosis Comments CBC W/DIFF AUTOMATED Routine 12/30/2024 7:51 AM CDT Gastroesophageal reflux disease without esophagitis COMPREHENSIVE METABOLIC PANEL Routine 12/30/2024 7:51 AM CDT Gastroesophageal reflux disease without esophagitis LIPASE Routine 12/30/2024 7:51 AM CDT Gastroesophageal reflux disease without esophagitis COLLECTION VENOUS BLOOD VENIPUNCTURE Routine 12/30/2024 7:44 AM CDT Gastroesophageal reflux disease without esophagitis BONE DENSITY GENERIC (SCAN ORDER) 11/19/2024 MAMMOGRAM GENERIC (SCAN ORDER) 09/12/2022 COLOGUARD (EXACT SCIENCE) Routine 08/06/2021 6:30 AM AUTO HIKER Colon cancer screening HEPATITIS C ANTIBODY Routine 02/22/2021 12:43 PM CDT Annual physical exam Establishing care with new doctor, encounter for Encounter for hepatitis C screening test for low risk patient General medical exam from Last 3 Months or Most Recently Relevant to Health Maintenance Results * (ABNORMAL) COMPREHENSIVE METABOLIC PANEL (12/30/2024 7:51 AM CDT) SODIUM S/P/B 144 136 - 145 MMOL/L 12/30/2024 4:00 PM CDT -[facility] POTASSIUM S/P/B 3.8 3.5 - 5.1 MMOL/L 12/30/2024 4:00 PM CDT -[facility] CHLORIDE S/P/B 106 98 - 107 MMOL/L 12/30/2024 4:00 PM CDT -[facility] CO2 27.6 21 - 32 MMOL/L 12/30/2024 4:00 PM CDT -[facility] GLUCOSE 87 70 - 99 MG/DL 12/30/2024 4:00 PM CDT -[facility] BUN 10 7 - 18 MG/DL 12/30/2024 4:00 PM CDT [facility] CREATININE S/P/B 1.02 0.55 - 1.02 MG/DL 12/30/2024 4:00 PM CDT [facility] CALCIUM S/P/B 9.1 8.4 - 10.5 MG/DL 12/30/2024 4:00 PM CDT -[facility] BILIRUBIN TOTAL S/P/B 0.5 0.2 - 1.0 MG/DL 12/30/2024 4:00 PM [facility] ALKALINE PHOSPHATASE S/P/B 106 55 - 142 U/L 12/30/2024 4:00 PM [facility] AST 16 15 - 37 U/L 12/30/2024 4:00 PM [facility] ALT 21 14 - 59 U/L 12/30/2024 4:00 PM [facility] TOTAL PROTEIN S/P/B 6.5 6.4 - 8.2 G/DL 12/30/2024 4:00 PM [facility] ALBUMIN S/P/B 3.8 3.4 - 5.0 G/DL 12/30/2024 4:00 PM [facility] ANION GAP 10.4 5 - 15 MMOL/L 12/30/2024 4:00 PM [facility] Comment:REFERENCE RANGE NOT ESTABLISHED OSMOLALITY (CALC) 296 MOSM/KG 12/30/ 025 4:00 PM [facility] Comment:REFERENCE RANGE NOT ESTABLISHED GFR ESTIMATE 60(L) >90 ML/MIN/1. 73 M2 12/30/2024 4:00 PM [facility] GFR NOTES GFR REFERENCE S: 12/30/2024 4:00 PM [facility] Comment: THE ESTIMATED GFR IS CALCULATED USING THE 2020 CKD-EPI EQUATION. THE FOLLOWING CATEGORIES FOR GRADING RENAL FUNCTION ARE RECOMMENDED BY THE INTERNATIONAL SOCIETY OF NEPHROLOGY (KDIGO 2012 CLINICAL PRACTICE GUIDELINE). G1,NORMAL OR HIGH: >89 ml/min/1.73 m2 G2,MILDLY DECREASED: 60-89 ml/min/1.73 m2 G3A,MILDLY TO MODERATELY DECREASED: 45-59 ml/min/1.73 m2 G3B,MODERATELY TO SEVERELY DECREASED: 30-44 ml/min/1.73 m2 G4,SEVERELY DECREASED: 15-29 ml/min/1.73 m2 G5,KIDNEY FAILURE: <15 ml/min/1.73 m2 12/30/2024 7:51 AM CDT Marj Helms MD LABORATORY Final Result -[facility] [address] [place] [address], [place] [phone] * (ABNORMAL) CBC W/DIFF AUTOMATED (12/30/2024 7:51 AM CDT) WBC 6.00 4.00 - 10.80 x10'3/uL 12/30/2024 3:14 PM CDT [facility] RBC 4.02(L) 4.10 - 5.40 x10'6/uL 12/30/2024 3:14 PM CDT [facility] HGB 12.7 12.0 - 16.0 G/DL 12/30/2024 3:14 PM CDT [facility] HCT 38.3 36.0 - 47.0 % 12/30/2024 3:14 PM CDT [facility] MCV 95.3 78.0 - 100.0 FL 12/30/2024 3:14 PM CDT [facility] MCH 31.6(H) 27.0 - 31.0 PG 12/30/2024 3:14 PM CDT [facility] MCHC 33.2 33.0 - 36.0 G/DL 12/30/2024 3:14 PM CDT [facility] RDW 12.1 11.5 - 14.5 % 12/30/2024 3:14 PM CDT [facility] PLT 318 150 - 350 x10'3/uL 12/30/2024 3:14 PM CDT [facility] MPV 8.5 7.4 - 10.4 FL 12/30/2024 3:14 PM CDT [facility] DIFFERENTIAL TYPE AUTOMATED DIFFERENTIAL 12/30/2024 3:14 PM CDT [facility] NEUTROPHILS % 46.8 % 12/30/2024 3:14 PM CDT [facility] LYMPHOCYTES % 37.7 % 12/30/2024 3:14 PM CDT [facility] MONOCYTES % 8.0 % 12/30/2024 3:14 PM CDT [facility] EOSINOPHILS % 6.3 % 12/30/2024 3:14 PM CDT [facility] BASOPHILS % 1.0 % 12/30/2024 3:14 PM CDT [facility] IMMATURE GRANS % 0.2 % 12/30/2024 3:14 PM CDT [facility] ABS. NEUTROPHILS 2.81 1.60 - 8.30 x10'3/uL 12/30/2024 3:14 PM CDT [facility] ABS. LYMPHOCYTES 2.26 0.80 - 4.70 x10'3/uL 12/30/2024 3:14 PM CDT -[facility] ABS. MONOCYTES 0.48 0.00 - 1.50 x10'3/uL 12/30/2024 3:14 PM CDT [facility] ABS. EOSINOPHILS 0.38 0.00 - 0.40 x10'3/uL 12/30/2024 3:14 PM CDT [facility] ABS. BASOPHILS 0.06 0.00 - 0.20 x10'3/uL 12/30/2024 3:14 PM CDT [facility] ABS. IMMATURE GRANULOCYTES 0.01 0.00 - 0.03 x10'3/uL 12/30/2024 3:14 PM CDT [facility] 12/30/2024 7:51 AM CDT us Marj Helms MD LABORATORY Final Result [facility] [address] [place] [address], * LIPASE (12/30/2024 7:51 AM CDT) LIPASE 61 16 - 77 UNITS/L 12/30/2024 3:00 PM CDT [facility] Comment:NEW REFERENCE RANGE 12/30/2024 7:51 AM CDT Marj Helms MD LABORATORY Final Result [facility] [address] [place] [address], * BONE DENSITY GENERIC (SCAN ORDER) (11/19/2024) Anatomical Region Laterality Modality Other 11/19/2024 [facility] Scanned SCANNING Final Resu lt * MAMMOGRAM GENERIC (09/12/2022) Anatomical Region Laterality Modality Other 09/12/2022 [facility] Scanned SCANNING Final Resu lt * COLOGUARD (EXACT SCIENCE) (08/06/2021 6:30 AM AUTO HIKER) COLOGUARD RESULT Negative Negative Sosh (CLIA #:[id number]) Comment: NEGATIVE TEST RESULT. A negative Cologuard result indicates a low likelihood that a colorectal cancer (CRC) or advanced adenoma (adenomatous polyps with more advanced pre-malignant features) is present. The chance that a person with a negative Cologuard test has a colorectal cancer is less than 1 in 1500 (negative predictive value >99.9%) or has an advanced adenoma is less than 5.3% (negative predictive value 94.7%). These data are based on a prospective cross-sectional study of 10,000 individuals at average risk for colorectal cancer who were screened with both Cologuard and colonoscopy. (Samaria Haney, N Engl J Med 2014;370(14):3369-1715) The normal value (reference range) for this assay is negative. COLOGUARD RE-SCREENING RECOMMENDATION: Periodic colorectal cancer screening is an important part of preventive healthcare for asymptomatic individuals at average risk for colorectal cancer. Following a negative Cologuard result, the [place] [employer] and U.S. Multi-Society Task Force screening guidelines recommend a Cologuard re-screening interval of 3 years. References: [place] [employer] Guideline for Colorectal Cancer Screening: https://www.cancer.org/cancer/ajbrt-wzbstz-ccumwz/qumhwzxwj-aslwljoyz-ddpqdid/ac s-rec ommendations.html.; Pedro DK, Jayden CR, Daniella ParkerK, Colorectal Cancer Screening: Recommendations for Physicians and Patients from the U.S. Multi-Society Task Force on Colorectal Cancer Screening , Am J Gastroenterology 2017; 112:1810-2874. TEST DESCRIPTION: Composite algorithmic analysis of stool DNA-biomarkers with hemoglobin immunoassay. Quantitative values of individual biomarkers are not reportable and are not associated with individual biomarker result reference ranges. Cologuard is intended for colorectal cancer screening of adults of either sex, 45 years or older, who are at average-risk for colorectal cancer (CRC). Cologuard has been approved for use by the U.S. FDA. The performance of Cologuard was established in a cross sectional study of average-risk adults aged 50-84. Cologuard performance in patients ages 45 to 49 years was estimated by sub-group analysis of near-age groups. Colonoscopies performed for a positive result may find as the most clinically significant lesion: colorectal cancer [4.0%], advanced adenoma (including sessile serrated polyps greater than or equal to 1cm diameter) [20%] or non- advanced adenoma [31%]; or no colorectal neoplasia [45%]. These estimates are derived from a prospective cross-sectional screening study of 10,000 individuals at average risk for colorectal cancer who were screened with both Cologuard and colonoscopy. (Samaria Haney, N Engl J Med 2014;370(14):1650-8602.) Cologuard may produce a false negative or false positive result (no colorectal cancer or precancerous polyp present at colonoscopy follow up). A negative Cologuard test result does not guarantee the absence of CRC or advanced adenoma (pre-cancer). The current Cologuard screening interval is every 3 years. ([place] [employer] and U.S. Multi-Society Task Force). Cologuard performance data in a 10,000 patient pivotal study using colonoscopy as the reference method can be accessed at the following location: www.NativeX.PlayFitness/results. Additional description of the Cologuard test process, warnings and precautions can be found at www.cologuard.com. STOOL STOOL SPECIMEN / Unknown 08/06/2021 6:30 AM AUTO HIKER 08/07/2021 12:36 PM AUTO HIKER Marj Helms MD BODY FLUIDS AND STOOLS ORDERABLE S Final Result Performing Organization Address [facility] Co de Phone Number [employer] [facility] [address] [place] [address], [place] (CLIA #:[id number]) [address] [place] [address] * HEPATITIS C ANTIBODY (02/22/2021 12:43 PM CDT) HEPATITIS C AB NON-REACTI VE NON-REACT BONILLA 02/22/2021 9:32 PM CDT [facility] Comment: ANTIBODIES TO HCV NOT DETECTED. DOES NOT EXCLUDE THE POSSIBILITY OF EXPOSURE TO HCV. 02/22/2021 12:4 3 PM CDT us Marj Helms MD LABORATORY Final Result Performing Organization Address [facility] Co de Phone Number [facility] [address] [place] [address], [phone] from Last 3 Months or Most Recently Relevant to Health Maintenance Insurance [place]IC[place] [address] Advance Directives * Full Code (Latest Code Status on File) Date Activated Date Inactivated Comments 01/03/2023 12:06 PM 01/06/2023 12:01 PM Care Teams Steel Plate Printer Relationship Specialty Start Date End Date Marj Helms MD [address] [id number] PCP - General INTERNAL MEDICINE 02/22/21 Demetrio Noble MD [address] [facility] [address] [place], [place] [id number] [employer] Leaf Conditioner Helper CARDIOVASCULAR DISEASE 11/04/15 Rayshawn Beltre MD [address] [place] [address] Consulting Physician ORTHOPAEDICS 01/03/21 Skip Krishnan MD [address] [place] [address] Consulting Physician NEUROLOGY 01/03/21 Dale Hernandez MD 1 [place] [address] Consulting Physician RADIATION ONCOLOGY 11/09/23
--- OUTSIDE RECORDS SUMMARY | 2025-03-17 07:25 | XMS_ITS | Encounter Summary ---
Author Organization [facility] Address Critical access hospital[address] [place] [address] Care Team Providers Care Train Controller Name Role Phone Demetrio Noble MD Unavailable [phone] Rayshawn Beltre MD Unavailable Unavailable Skip Krishnan MD Unavailable [phone] Marj Helms MD Primary Care Provider [phone] Pilar Huerta RN Unavailable [phone] Dale Hernandez MD Unavailable Encounter Details Date Type Department Care Team (Late st Contact Info) Description 11/21/2022 MyChart Message Enc [facility] Medical Group Multispecialty Care - [facility] [address] [facility], [address] [place] [phone] Jose Ordoñez MD 3 [place] [address] Upcoming surgery questions Social History Tobacco Use Types Packs/Day Years Used Date Smoking Tobacco: Never Smokeless Tobacco: Never Comments:counseled by Dr Nahed okeefe Alcohol Use Standard Drinks/Week Comments No 0 (1 standard drink = 0.6 oz pur e alcohol) AUDIT-C Answer Date Recorded Frequency of Alcohol Consumption Never 05/14/2018 Average Number of Drinks Not on file 018 Frequency of Binge Drinking Not on file 05/05 PHQ-2 Answer Date Recorded Patient Health Questionnaire-2 Score 0 08/01/2022 Comments No Sex and Gender Information Value Date Recorded Sex Assigned at Female 08/05/2024 9:06 AM DRIER AND EVAPORATOR OPERATOR Legal Sex Female 2:35 PM DRIER AND EVAPORATOR OPERATOR Gender Identity Female 08/05/2024 9:06 AM DRIER AND EVAPORATOR OPERATOR Sexual Orientation Straight 08/05/2024 9: 06 AM DRIER AND EVAPORATOR OPERATOR documented as of this encounter Plan of Treatment Upcoming Encounters Date Type Department Care Team (Late st Contact Info) Description 03/24/2025 12:40 PM CDT Office Visit [facility] Medical Group Multispecialty Care - [place] [address] [address] [place] [address] [place] [address] [place] [address] documented as of this encounter Visit Diagnoses Not on filedocumented in this encounter Additional Health Concerns Assessment Noted Time PHQ-9 Depression Total Score: 0 09/07/19 22 1:14 PM CDT documented as of this encounter Care Teams Train Controller Relationship Specialty Start Date End Date Marj Helms MD [address] [place] [address] PCP - General INTERNAL MEDICINE 02/22/21 Demetrio Noble MD [facility]. [facility] [address] [place] [address] [place] [employer] CARDIOVASCULAR DISEASE 11/04/15 Rayshawn Beltre MD [facility]. [facility] [address] [place] [address] Consulting Physician ORTHOPAEDICS 01/03/21 Skip Krishnan MD [address] [address] Consulting Physician NEUROLOGY 01/03/21 Pilar Huerta RN [address] [place] [address] Commercial Journeyman Electrician (Ambulatory) REGISTERED NURSE 01/03/23 01/25/23 Dale Hernandez MD 1 [place], [place] [address] Consulting Physician RADIATION ONCOLOGY 11/09/23 documented as of this encounter
--- OUTSIDE RECORDS SUMMARY | 2025-03-17 07:26 | XMS_ITS | Patient Health Record ---
Author Organization [facility] Address [address] [place] [address] Care Team Providers Care Hr Manager Name Role Phone Rayshawn Berry Primary Care Provider Unavailab zora Washburn MD, Horacio Turcios [phone] REASON FOR REFERRAL No Information SOCIAL HISTORY Sex Assigned At : Social History Observation Description Sex Assigned At Unknown Encounters Encounter Location Date Provider Diagnosis [facility] [address] [place] [address] 06/20/2024 Horacio Washburn MD PLAN OF TREATMENT No Information
--- OUTSIDE RECORDS SUMMARY | 2025-03-17 07:26 | XMS_ITS | Encounter Summary ---
Author Organization [facility] Address [facility]ly [facility] [place] [address] Care Team Providers Care Dosimetrist Name Role Phone Demetrio Noble MD Unavailable Rayshawn Beltre MD Unavailable Unavailable Skip Krishnan MD Unavailable [phone] Marj Helms MD Primary Care Provider [phone] Pilar Huerta RN Unavailable [phone] Dale Hernandez MD Unavailable Encounter Details Date Type Department Care Team (Latest Contact Info) Description 03/17/2021 MyChart Message Enc [facility] Medical Group Multispecialty Care - [place] [address] [address] [place] [address] [place] [address] [place] [address] [address] [place] [address] RE: Test Results Social History Tobacco Use Types Packs/Day Years [...] on file 05/05 PHQ-2 Answer Date Recorded PHQ-2 Score - If the patient scores above 3, please move on to questions 3-9 3 02/22/2021 Comments No Sex and Gender Information Value Date Recorded Sex Assigned at Female 08/05/2024 9:06 AM SURGICAL AIDE Legal Sex Female 2:35 PM SURGICAL AIDE Gender Identity Female 08/05/2024 9:06 AM SURGICAL AIDE Sexual Orientation Straight 08/05/2024 9: 06 AM SURGICAL AIDE COVID-19 Exposure Response Date Recorded In the last month, have you been in contact with someone who was confirmed or suspected to have Coronavirus / COVID-19? No / Unsure 03/14/2021 10:29 PM CDT documented as of this encounter Plan of Treatment Upcoming Encounters Date Type Department Care Team (Late st Contact Info) Description 03/24/2025 12:40 PM CDT Office Visit [facility] Medical Group Multispecialty Care - [place] [address] [address] [place] [address] Marj Helms MD [address] [place] [address] documented as of this encounter Visit Diagnoses Not on filedocumented in this encounter Additional Health Concerns Assessment Noted Time PHQ-9 Depression Total Score: 6 02/23/20 21 1:09 PM CDT documented as of this encounter Care Teams Dosimetrist Relationship Specialty Start Date End Date Marj Helms MD [address] [place] [address] PCP - General INTERNAL MEDICINE 02/22/21 Demetrio Noble MD Three [facility]. [address] [address] [place] [employer] Server CARDIOVASCULAR DISEASE 11/04/15 Rayshawn Beltre MD Three [facility]. [facility] [address] [place] [address] Consulting Physician ORTHOPAEDICS 01/03/21 Skip Krishnan MD [address] [address] Consulting Physician NEUROLOGY 01/03/21 Pilar Huerta, RN [address] [place] [address] Reactor Operator (Ambulatory) REGISTERED NURSE 01/03/23 01/25/23 Dale Hernandez MD 1 [place] [address] Consulting Physician RADIATION ONCOLOGY 11/09/23 documented as of this encounter
--- OUTSIDE RECORDS SUMMARY | 2025-03-17 07:26 | XMS_ITS | Encounter Summary ---
Author Organization [facility] Address [facility]6 [place] [address] Care Team Providers Care Cut Press Operator Name Role Phone Demetrio Noble MD Unavailable [phone] Rayshawn Beltre MD Unavailable Unavailable Skip Krishnan MD Unavailable [phone] Marj Helms MD Primary Care Provider [phone] Pilar Huerta RN Unavailable Dale Hernandez MD Unavailable Encounter Details Date Type Department Care Team (Late st Contact Info) Description 12/20/2021 Mandy & Pandy Message Enc [facility] Medical Group Multispecialty Care - [address] [place] [address] [place], [facility] Provider [place] result Social History Tobacco Use Types Packs/Day Years [...] 3, please move on to questions 3-9 1 11/08/2021 Comments No Sex and Gender Information Value Date Recorded Sex Assigned at Female 08/05/2024 9:06 AM CUSTOMER COMPLAINT CLERK Legal Sex Female 2:35 PM CUSTOMER COMPLAINT CLERK Gender Identity Female 08/05/2024 9:06 AM CUSTOMER COMPLAINT CLERK Sexual Orientation Straight 08/05/2024 9: 06 AM CUSTOMER COMPLAINT CLERK COVID-19 Exposure Response Date Recorded In the last 10 days, have yo u been in contact with someone who was confirmed or suspected to have Coronavirus/COVID-19? No / Unsure 12/13/2021 10:23 AM CDT documented as of this encounter Plan of Treatment Upcoming Encounters Date Type Department Care Team (Late st Contact Info) Description 03/24/2025 12:40 PM CDT Office Visit [facility] Medical Group Multispecialty Care - [place] [address] [address] [place] [address] [place] [address] [place] [address] documented as of this encounter Visit Diagnoses Not on filedocumented in this encounter Additional Health Concerns Assessment Noted Time PHQ-9 Depression Total Score: 0 09/07/19 22 1:14 PM CDT documented as of this encounter Care Teams Cut Press Operator Relationship Specialty Start Date End Date Marj Helms MD [address] [place] [address] [address] [place] [address] PCP - General INTERNAL MEDICINE 02/22/21 Demetrio Noble MD [facility]. [address] [place] [address] [place] Technology Instructor CARDIOVASCULAR DISEASE 11/04/15 Rayshawn Beltre MD Three [facility]. [address] [place] [address] Consulting Physician ORTHOPAEDICS 01/03/21 Skip Krishnan MD [address] [address] Consulting Physician NEUROLOGY 01/03/21 Pilar Huerta, RN [facility]1 [place] [address] Fish Bait Processing Supervisor (Ambulatory) REGISTERED NURSE 01/03/23 01/25/23 Dale Hernandez MD 1 [place] [address] Consulting Physician RADIATION ONCOLOGY 11/09/23 documented as of this encounter
--- OUTSIDE RECORDS SUMMARY | 2025-03-17 07:26 | XMS_ITS | Encounter Summary ---
Author Organization [facility] Address [facility] [place] [address] Care Team Providers Care Video Control Operator Name Role Phone Demetrio Noble MD Unavailable [phone] Rayshawn Beltre MD Unavailable Unavailable Skip Krishnan MD Unavailable [phone] Marj Helms MD Primary Care Provider [phone] Dale Hernandez MD Unavailable Encounter Details Date Type Department Care Team (Late st Contact Info) Description 08/05/2024 Snapwiret Message Enc [facility] Medical Group Multispecialty Care - [place] [address] [address] [address] [place] [address] [place] [address] [place] [address] 157 [place] [address] Results Social History Tobacco Use Types Packs/Day [...] Answer Date Recorded Patient Health Questionnaire-2 Score 1 08/05/2024 [facility] - Occupational Stress [...] place to sleep or slept in a retirement (including now)? No 01/03/2023 Comments No Sex and Gender Information Value Date Recorded Sex Assigned at Female 08/05/2024 9:06 AM FIELD MARKETING LEAD Legal Sex Female 2:35 PM FIELD MARKETING LEAD Gender Identity Female 08/05/2024 9:06 AM FIELD MARKETING LEAD Sexual Orientation Straight 08/05/2024 9: 06 AM FIELD MARKETING LEAD documented as of this encounter Functional Status * Are you deaf or do you have serious difficulty hearing Answer Date of Assessment Author Status Yes 01/03/2023 12:13 PM CDT Estrellita Villarreal RN Active * Are you blind or do you have serious difficulty seeing, even when wearing glasses? Answer Date of Assessment Author Status No 01/03/2023 12:13 PM Estrellita Campos RN Active * Do you have serious difficulty walking or climbing stairs? Answer Date of Assessment Author Status No 01/03/2023 12:13 PM Estrellita Campos RN Active * Do you have difficulty dressing or bathing? Answer Date of Assessment Author Status No 01/03/2023 12:13 PM Estrellita Campos RN Active * Because of a physical, mental, or emotional condition, do you have difficulty doing errands alone such as visiting a doctor's office or shopping? Answer Date of Assessment Author Status No 01/03/2023 12:13 PM Estrellita Campos RN Active * Over the past 2 weeks, how often have you been bothered by any of the following problems? Question Answer Date of Assessment Author Status Little interest or pleasure in doing things Not at all 08/05/2024 10:15 AM Christie Martinez MA Activ e Feeling down, depressed, or hopeless Several days 08/05/2024 10:15 AM Christie Martinez M A Active Patient Health Questionnaire-2 Score 1 08/05/2024 10:15 AM Christie Martinez MA Active * Over the last 2 weeks, how often have you been bothered by any of the following problems? Question Answer Date of Assessment Author Status Feeling nervous, anxious, or on edge 1 08/05/2024 10:15 AM Christie Martinez MA Activ e Not being able to stop or control worrying 1 08/05/2024 10:15 AM Christie Martinez MA Acti ve Worrying too much about different things 1 08/05/2024 10:15 AM Christie Martinez MA Acti ve Trouble relaxing 0 08/05/2024 10:15 AM Christie Martinez MA Active Being so restless that it is hard to sit still 0 08/05/2024 10:15 AM Christie Martinez MA Act antione Becoming easily annoyed or irritable 0 08/05/2024 10:15 AM Christie Martinez MA Activ e Feeling afraid as if something awful might happen 0 08/05/2024 10:15 AM Munira Martinez MA Active PATRICK-7 Total Score 3 08/05/2024 10:15 AM Christie Martinez MA Active documented as of this encounter Mental [...] Description 03/24/2025 12:40 PM CDT Office Visit [facility] Medical Group Multispecialty Care - [place] [address] [address] [address] [place] [address] Marj Helms MD [address] [place] [address] documented as of this encounter Visit Diagnoses Not on filedocumented in this encounter Additional Health Concerns Assessment Noted Time PHQ-9 Depression Total Score: 1 10/18/19 24 8:49 AM CDT documented as of this encounter Care Teams Video Control Operator Relationship Specialty Start Date End Date Marj Helms MD [address] [place] [address] PCP - General INTERNAL MEDICINE 02/22/21 Demetrio Noble MD Three [facility]. [address] [address] Sully Typewriter Ribbon Winder CARDIOVASCULAR DISEASE 11/04/15 Rayshawn Beltre MD Three [facility]. [address] [address] Consulting Physician ORTHOPAEDICS 01/03/21 Skip Krishnan MD [address] [address] Consulting Physician NEUROLOGY 01/03/21 Dale Hernandez MD [address] [place] [address] Consulting Physician RADIATION ONCOLOGY 11/09/23 documented as of this encounter
--- OUTSIDE RECORDS SUMMARY | 2025-03-17 07:26 | XMS_ITS | Clinical Summary ---
Author Organization [facility] Address [address] [place] [address] Phone Care Team Providers Care Modern Greek Studies Professor Name Role Phone Marj Helms MD Primary Care Provider [phone] Social History Tobacco Use Types Packs/Day Years Used Date Smoking Tobacco: Never Assessed Comments Unknown Sex and Gender Information Value Date Recorded Sex Assigned at Not on file Legal Sex Female 5:27 PM CDT Gender Identity Not on file Sexual Orientation Not on file Plan of Treatment Health Maintenance Due Date Last Done Comments DEXA Bone Density 1956 Mammogram 1956 Cologuard 2001 Colonoscopy 2001 Colorectal Cancer Screening 2001 Immunochemical Fecal Occult Blood 2001 Medicare Initial AWV [id number] 05/05/2022 Influenza Immunization (#1) 02/03/202503/05, 03/27/2023, 02/22/2022, Additional history exists SARS-COV-2 Immunization (2024- season) 2025 05/23/2021, 09/13/2020, 08/18/2020 Respiratory Syncytial Virus (RSV) Immunization (Adult) (1 - 1-dose 75+ series) 2031 Hepatitis B Immunization Completed 006, 02/01/2005, 12/27/2004 Hepatitis C Virus (HCV) Screening Completed 02/22/2021 TdaP Immunization Completed 05/10/2021 Zoster Immunization Completed 07/31/2022, Pneumococcal Immunization (50+ years) Completed 02/27/2023, 07/12/2021 Human Papillomavirus (HPV) Immunization Aged Out No longer eligible based on patient's age to complete this topic Meningococcal Immunization (ACWY) Aged Out No longer eligible based on patient's age to complete this topic Rotavirus Immunization Aged Out No lo nger eligible based on patient's age to complete this [place] [address] MEDICARE [facility] [employer] Care Teams Modern Greek Studies Professor Relationship Specialty Start Date End Date Marj Helms MD [address] [facility] [address] [place] [address] PCP - General Internal Medicine 11/16/23
--- OUTSIDE RECORDS SUMMARY | 2025-03-17 07:26 | XMS_ITS | Encounter Summary ---
Author Organization [facility] Address [facility]6 [place] [address] Care Team Providers Care Smoked Meat Preparer Name Role Phone Demetrio Noble MD Unavailable [phone] Rayshawn Beltre MD Unavailable Unavailable Skip Krishnan MD Unavailable [phone] Marj Helms MD Primary Care Provider [phone] Pilar Huerta RN Unavailable [phone] Dale Hernandez MD Unavailable Encounter Details Date Type Department Care Team (Latest Contact Info) Description 10/18/2021 MyChart Message Enc [facility] Medical Group Multispecialty Care - [place] [address] [address] [place] [address] [place] [address] [place] [address] [address] [place] [address] abdominal ultrasound. Social History Tobacco Use Types Packs/Day Years [...] 3, please move on to questions 3-9 0 09/06/2021 Comments No Sex and Gender Information Value Date Recorded Sex Assigned at Female 08/05/2024 9:06 AM INCIDENT RESPONSE CONSULTANT Legal Sex Female 2:35 PM INCIDENT RESPONSE CONSULTANT Gender Identity Female 08/05/2024 9:06 AM INCIDENT RESPONSE CONSULTANT Sexual Orientation Straight 08/05/2024 9: 06 AM INCIDENT RESPONSE CONSULTANT documented as of this encounter Plan of Treatment Upcoming Encounters Date Type Department Care Team (Late st Contact Info) Description 03/24/2025 12:40 PM CDT Office Visit [facility] Medical Group Multispecialty [facility] - [place] [address] [address] [place] [address] Marj Helms MD [address] [address] documented as of this encounter Visit Diagnoses Not on filedocumented in this encounter Additional Health Concerns Assessment Noted Time PHQ-9 Depression Total Score: 0 09/07/19 22 1:14 PM CDT documented as of this encounter Care Teams Smoked Meat Preparer Relationship Specialty Start Date End Date Marj Helms MD [address] [place] [address] PCP - General INTERNAL MEDICINE 02/22/21 Demetrio Noble MD [facility]. [address] [address] Ottertail Loom Mechanic CARDIOVASCULAR DISEASE 11/04/15 Rayshawn Beltre MD [facility]. [address] [address] Consulting Physician ORTHOPAEDICS 01/03/21 Skip Krishnan MD [address] [address] Consulting Physician NEUROLOGY 01/03/21 Pilar Huerta, RN [address] [place], [place] [address] Cupola Worker (Ambulatory) REGISTERED NURSE 01/03/23 01/25/23 Dale Hernandez MD 1 [place] [address] Consulting Physician RADIATION ONCOLOGY 11/09/23 documented as of this encounter
--- OUTSIDE RECORDS SUMMARY | 2025-03-17 07:26 | XMS_ITS | Encounter Summary ---
Author Organization [facility] Address [facility] [place] [address] Care Team Providers Care Scrap Iron Loader Name Role Phone Demetrio Noble MD Unavailable [phone] Rayshawn Beltre MD Unavailable Unavailable Skip Krishnan MD Unavailable [phone] Marj Helms MD Primary Care Provider [phone] Pilar Huerta RN Unavailable [phone] Dale Hernandez MD Unavailable Encounter Details Date Type Department Care Team (Latest Contact Info) Description 03/25/2021 MyChart Message Enc [facility] Multispecialty Care - [address] [address] [address] [place] [address] [place] [address] [place] [address] [address] [place] [address] RE:mammogram results Social History Tobacco Use Types Packs/Day Years [...] Sex Assigned at Female 08/05/2024 9:06 AM MANAGER PROCESS IMPROVEMENT Legal Sex Female 2:35 PM MANAGER PROCESS IMPROVEMENT Gender Identity Female 08/05/2024 9:06 AM MANAGER PROCESS IMPROVEMENT Sexual Orientation Straight 08/05/2024 9: 06 AM MANAGER PROCESS IMPROVEMENT COVID-19 Exposure Response Date Recorded In the last month, have you been in contact with someone who was confirmed or suspected to have Coronavirus / COVID-19? No / Unsure 03/14/2021 10:29 PM CDT documented as of this encounter Plan of Treatment Upcoming Encounters Date Type Department Care Team (Late st Contact Info) Description 03/24/2025 12:40 PM CDT Office Visit [facility] Multispecialty Care - [address] [address] [address] [place] [address] Marj Helms MD [address] [place] [address] documented as of this encounter Visit Diagnoses Not on filedocumented in this encounter Additional Health Concerns Assessment Noted Time PHQ-9 Depression Total Score: 6 02/23/20 21 1:09 PM CDT documented as of this encounter Care Teams Scrap Iron Loader Relationship Specialty Start Date End Date Marj Helms MD [address] [place] [address] PCP - General INTERNAL MEDICINE 02/22/21 Demetrio Noble MD Three [facility]. [address] [address] [place] Manufacturing Design Engineer CARDIOVASCULAR DISEASE 11/04/15 Rayshawn Beltre MD Three [facility]. [address] [address] Consulting Physician ORTHOPAEDICS 01/03/21 Skip Krishnan MD [address] [address] Consulting Physician NEUROLOGY 01/03/21 Pilar Huerta, RN [address] [place] [address] Exerciser Horse (Ambulatory) REGISTERED NURSE 01/03/23 01/25/23 Dale Hernandez MD [address] [place] [address] Consulting Physician RADIATION ONCOLOGY 11/09/23 documented as of this encounter
--- OUTSIDE RECORDS SUMMARY | 2025-03-17 07:26 | XMS_ITS | Encounter Summary ---
Author Organization [facility] Address [facility] [place] [address] Care Team Providers Care Die Out Worker Name Role Phone Demetrio Noble MD Unavailable [phone] Rayshawn Beltre MD Unavailable Unavailable Skip Krishnan MD Unavailable [phone] Marj Helms MD Primary Care Provider [phone] Pilar Huerta RN Unavailable [phone] Dale Hernandez MD Unavailable Encounter Details Date Type Department Care Team (Late st Contact Info) Description 10/12/2021 ParcelGenie Message Enc [facility] Medical Group Multispecialty Care - [address], [address] [place] [id number] [facility] Provider Appt Social History Tobacco Use Types Packs/Day Years [...] Sex Assigned at Female 08/05/2024 9:06 AM 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 Legal Sex Female 2:35 PM 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 Gender Identity Female 08/05/2024 9:06 AM 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 Sexual Orientation Straight 08/05/2024 9: 06 AM 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 documented as of this encounter Plan of Treatment Upcoming Encounters Date Type Department Care Team (Late st Contact Info) Description 03/24/2025 12:40 PM CDT Office Visit [facility] Medical Group Multispecialty [address] [address] [address] [place] [address] Marj Helms MD [address] [facility] [address] [place] [address] documented as of this encounter Visit Diagnoses Not on filedocumented in this encounter Additional Health Concerns Assessment Noted Time PHQ-9 Depression Total Score: 0 09/07/19 22 1:14 PM CDT documented as of this encounter Care Teams Die Out Worker Relationship Specialty Start Date End Date Marj Helms MD [address] [place] [address] PCP - General INTERNAL MEDICINE 02/22/21 Demetrio Noble MD Three [address] [address] [place] Oriental Rug Repairer CARDIOVASCULAR DISEASE 11/04/15 Rayshawn Beltre MD Three [facility]. [address] [address] Consulting Physician ORTHOPAEDICS 01/03/21 Skip Krishnan MD [address] [address] Consulting Physician NEUROLOGY 01/03/21 Pilar Huerta, RN [address] [place] [address] Chemical Research Worker (Ambulatory) REGISTERED NURSE 01/03/23 01/25/23 Dale Hernandez MD [address] [place] [address] Consulting Physician RADIATION ONCOLOGY 11/09/23 documented as of this encounter
--- OUTSIDE RECORDS SUMMARY | 2025-03-17 07:27 | XMS_ITS | Encounter Summary ---
Author Organization [facility] Address [facility] [place] [address] Care Team Providers Care Training Developer Name Role Phone Demetrio Noble MD Unavailable [phone] Rayshawn Beltre MD Unavailable Unavailable Skip Krishnan MD Unavailable [phone] Marj Helms MD Primary Care Provider [phone] Dale Hernandez MD Unavailable Encounter Details Date Type Department Care Team (Late st Contact Info) Description 04/05/2024 Networks in [employer] Message Enc [facility] Orthopedic & Sports Medicine - [place] [address] [place] [facility] Provider Hand Social History Tobacco Use Types Packs/Day Years [...] Date Recorded Patient Health Questionnaire-2 Score 0 12/04/2023 [facility] - Occupational [...] place to sleep or slept in a prison (including now)? No 01/03/2023 Comments No Sex and Gender Information Value Date Recorded Sex Assigned at Female 08/05/2024 9:06 AM STAGE MANAGER Legal Sex Female 2:35 PM STAGE MANAGER Gender Identity Female 08/05/2024 9:06 AM STAGE MANAGER Sexual Orientation Straight 08/05/2024 9: 06 AM STAGE MANAGER documented as of this encounter Functional Status * Are you deaf or do you have serious difficulty hearing Answer Date of Assessment Author Status Yes 01/03/2023 12:13 PM Estrellita Campos RN Active * Are you blind or [...] 12:13 PM Estrellita Campos RN Active * Calculated C-SSRS Risk Score (Lifetime/Recent) Answer Date of Assessment Author Status No Risk Indicated 04/05/2024 11:55 AM Mg Cordova RN Active * [place] Suicide Severity Rating Scale (Screener/Recent Self-Report) Question Answer Date of Assessment Author Status 1. Wish to be (Past 1 Month) No 04/05/2024 11:55 AM Raul Cordova RN Active 2. Non-Specific Active Suicidal Thoughts (Past 1 Month) No 04/05/2024 11:55 AM Raul Cordova RN Active 6. Suicidal Behavior (Lifetime) No 04/05/2024 11:55 AM Raul Cordova RN Active documented as of this encounter [...] Description 03/24/2025 12:40 PM CDT Office Visit [facility] Multispecialty Care - [place] [address] [address] [address] [address] [address] [place] [address] Marj Helms MD [address] [facility] [address] [place] [address] documented as of this encounter Visit Diagnoses Not on filedocumented in this encounter Additional Health Concerns Assessment Noted Time PHQ-9 Depression Total Score: 1 10/18/19 24 8:49 AM CDT documented as of this encounter Care Teams Training Developer Relationship Specialty Start Date End Date Marj Helms MD [address] [facility] [address] [place] [address] PCP - General INTERNAL MEDICINE 02/22/21 Demetrio Noble MD Three [facility]. [address] [address] [place] Movie Theater Manager CARDIOVASCULAR DISEASE 11/04/15 Rayshawn Beltre MD Three [facility]. [facility] [address] [place] [address] Consulting Physician ORTHOPAEDICS 01/03/21 Skip Krishnan MD 68[address] [facility] [address] [place] [address] Consulting Physician NEUROLOGY 01/03/21 Dale Hernandez MD [address] [facility] [place] [address] Consulting Physician RADIATION ONCOLOGY 11/09/23 documented as of this encounter
--- OUTSIDE RECORDS SUMMARY | 2025-03-17 07:27 | XMS_ITS | Patient Health Record ---
Author Organization [facility] Address [address] [place], [place] [address] Care Team Providers Care Pocketed Spring Machine Operator Name Role Phone Marj Helms Unavailable Unavailable Allergies Allergen (clinical drug ingredient) Drug/Non Drug Allergy documented on EMR Reaction Allergy Type Onset Date Status gabapentin Gabapentin Unknown Drug Allergy Activ e Latex Latex Unknown Allergy Active Reason For Referral No Information Medications Medication SIG (Take, Route, Fr equency, Duration) Notes Start Date End Date Status Repatha Active Ubrelvy Active ZyrTEC Active Carvedilol Active Fluoxetine Active Misc. Devices Active Polyethylene Glycol Active valACYclovir HCl Act antione ZOLMitriptan Active Vitamin D Active Vitamin B-12 Active Calcium Active Probiotic Active Plan Of Treatment No Information Insurance Providers Payer Name Payer Address Payer Phone Subscriber Number Group Number Insured Name Patient Relationship to Insured Coverage Start Date Coverage End Date Medicare Part B [facility] [address] [place] [address] [id number] Norma Reinoso Self - patient is the insured [employer] (All Regions) [address] [place], [place] [id number] [id number] Norma Reinoso Self - patient is the insured Medical (General) History Medical History History ICD Code Arthritis migraine headaches High blood pressure Surgical History Surgery Date(Month/Year) Back surgery transforaminal lumbar inter body fusion 01/03/2023 First metatarsal left foot 08/01/2017
== END 2025-03-17 07:20 | disposition home or self-care (01) ==
LOC: ANHFOHIMG 07:22
PROVIDERS: PCP Internal Medicine; Visit Provider Obstetrics & Gynecology
DX: Z12.31 Encounter for screening mammogram for malignant neoplasm of breast (principal); R92.8 Other abnormal and inconclusive findings on diagnostic imaging of breast
CPT/HCPCS: 77063; 77067

== ENCOUNTER 2025-03-25 10:09 | Outpatient (CLI) | payer MEDICARE, OTHER, SELFPAY ==
--- OUTSIDE RECORDS SUMMARY | 2024-06-20 06:20 | XMS_ITS ---
Author Organization [facility] [place] Address [address] [place] [address] Care Team Providers Care Workforce Management Analyst Name Role Phone Rayshawn Berry Primary Care Provider Unavailab zora Washburn MD, Horacio Turcios [phone] REASON FOR VISIT rt hand pain Encounters Encounter Location Date Provider Diagnosis [facility] [address] [place] [address] 06/20/2024 Horacio Washubrn MD PLAN OF TREATMENT No Information
--- NOTE | ~2025-03-25 | MM_ITS ---
EXAMINATION: MM diagnostic [facility] RT w mika INDICATION: 69-year old female; BI-RADS 0, callback to evaluate Right breast focal asymmetry COMPARISON: 03/17/2025 TECHNIQUE: Digital breast tomosynthesis True lateral view and spot compression CC and MLO views of Right breast were obtained with computer-aided detection to assist in interpretation of the study. FINDINGS: The breasts are heterogeneously dense, which may obscure small masses. The focal asymmetry seen in the retroareolar Right breast on the screening mammogram effaces on additional views, compatible with normal overlapping tissue.. IMPRESSION: Right breast finding represents superimposition of fibroglandular tissue. No further investigation necessary. RECOMMENDATION: Annual screening mammography in 12 months BI-RADS 2, BENIGN Reviewed, dictated and finalized at location B. IMPRESSION: Right breast finding represents superimposition of fibroglandular tissue. No fu rther investigation necessary. RECOMMENDATION: Annual screening mammography in 12 months BI-RADS 2, BENIGN
--- OUTSIDE RECORDS SUMMARY | 2025-03-25 12:11 | XMS_ITS | Clinical Summary ---
Author Organization [facility] Address [address] [place] [address] Phone Care Team Providers Care Hotel Front Desk Agent Name Role Phone Melissa Aguirre MD Unavailable Marj Helms MD Primary Care Provider [phone] Allergies Active Allergy Reactions Criticality Noted Date [...] with ultrasound and CT scan, 12/21/2017, with [facility]. 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 Not on file Not on file Not [...] Site ID: [place] Name: Amy Garcia Address: [address] [address] Director: Stanislav Best D.O., MPH us Melissa Aguirre MD LAB MICROBIOLOGY - GENERAL ORDER LEEANN Final Result [facility] Andrea from Last 3 Months or Most Recently Relevant to Health Maintenance Insurance [facility] MEDICARE FOR LIFE [facility] MEDICARE FOR LIFE Care Teams Hotel Front Desk Agent Relationship Specialty Start Date End Date Marj Helms MD [address] [place] [address] PCP - General Internal Medicine 11/03/23 [place] [address] [facility] [address] [place] [address] Rheumatology 04/11/17
--- OUTSIDE RECORDS SUMMARY | 2025-03-25 12:11 | XMS_ITS | Patient Health Record ---
Author Organization [facility] Address [address] [place] [address] Care Team Providers Care Jig Box Operator Name Role Phone Rayshawn Berry Primary Care Provider Unavailab zora Washburn MD, Horacio Turcios [phone] REASON FOR REFERRAL No Information SOCIAL HISTORY Sex Assigned At : Social History Observation Description Sex Assigned At Unknown Encounters Encounter Location Date Provider Diagnosis [facility] [address] [place] [address] 06/20/2024 Horacio Washburn MD PLAN OF TREATMENT No Information
--- OUTSIDE RECORDS SUMMARY | 2025-03-25 12:11 | XMS_ITS | Clinical Summary ---
Author Organization [facility] Address [address] [facility] [place] [address] Care Team Providers Care Workforce Manager Name Role Phone Unavailable Primary Care Provider Unavailabl e Source Comments [facility],non-owned Affiliates and Associated Physician Practices is amultiple site organization consisting of ambulatory clinics and hospital sitesin [place], [place], [place] and [place]. This disclosure is being madepursuant to the Care Everywhere program and may not contain all information available regarding this patient. 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
--- OUTSIDE RECORDS SUMMARY | 2025-03-25 12:11 | XMS_ITS | Patient Health Record ---
Author Organization [facility] Address [address] [place], [place] [address] Care Team Providers Care Utility Maintenance Worker Name Role Phone Marj Helms Unavailable Unavailable [...] Date Coverage End Date Medicare Part B [facility] [address] [place] [address] [id number] Norma Reinoso Self - patient is the insured [employer] for [employer] (All Regions) [address] [place], [place] [id number] Norma Reinoso Self - patient is the insured Medical (General) History Medical History History ICD Code Arthritis migraine headaches High blood pressure Surgical History Surgery Date(Month/Year) Back surgery transforaminal lumbar inter body fusion 01/03/2023 First metatarsal left foot 08/01/2017
--- OUTSIDE RECORDS SUMMARY | 2025-03-25 12:11 | XMS_ITS | Clinical Summary ---
Author Organization [facility] Address [address] [place] [address] Phone Care Team Providers Care Associate Drafter Name Role Phone Marj Helms MD Primary Care Provider [phone] Social History Tobacco Use Types Packs/Day Years [...] to complete this topic [place] [address] MEDICARE [facility] [employer] Care Teams Associate Drafter Relationship Specialty Start Date End Date Marj Helms MD [address] [facility] [address] [place] [address] PCP - General Internal Medicine 11/16/23
== END 2025-03-25 10:10 | disposition home or self-care (01) ==
LOC: ANHFOHIMG 10:10
PROVIDERS: PCP Internal Medicine; Visit Provider Nurse Practitioner Obstetrics & Gynecology
DX: R92.8 Other abnormal and inconclusive findings on diagnostic imaging of breast (principal)
CPT/HCPCS: 77061; 77065; G0279